=== PATIENT | female | born 1945 | race Caucasian/White ===

== ENCOUNTER → 2022-01-13 | Outpatient (CLI) | payer OTHER ==
[2022-01-13 07:54] LABS: Urine Bacteria FEW /hpf (None Seen); Urine Blood 1+ /uL (Negative); Urine Specific Gravity 1.005 (1.001-1.035); Urine WBC 28 /hpf (0 - 5)
[2022-01-13 12:05] LABS: Potassium 4.1 mmol/L (3.5-5.1)
[2022-01-13 12:21] LABS: BUN/Creatinine Ratio 17.9; Bilirubin, Total 0.6 mg/dL (0.2-1.0); Calcium 10.2 mg/dL (8.5-10.1); Total Protein 7.2 g/dL (6.4-8.2)
== END | disposition home or self-care (01) ==
LOC: LAB 07:28
PROVIDERS: ATTEND Internal Medicine
DX: Z12.11 Encounter for screening for malignant neoplasm of colon (principal); Z00.00 Encounter for general adult medical examination without abnormal findings; I12.9 Hypertensive chronic kidney disease with stage 1 through stage 4 chronic kidney disease, or unspecified chronic kidney disease; N18.30 Chronic kidney disease, stage 3 unspecified
CPT/HCPCS: 36415; 80053; 80061; 81001; 83036

== ENCOUNTER → 2022-01-17 | Outpatient (CLI) | payer OTHER | END | disposition home or self-care (01) | LOC: LAB 12:12 | PROVIDERS: ATTEND Internal Medicine | DX: Z12.11 Encounter for screening for malignant neoplasm of colon (principal); Z00.00 Encounter for general adult medical examination without abnormal findings; I12.9 Hypertensive chronic kidney disease with stage 1 through stage 4 chronic kidney disease, or unspecified chronic kidney disease; N18.30 Chronic kidney disease, stage 3 unspecified | CPT/HCPCS: 82270; 87086 ==

== ENCOUNTER → 2022-03-29 | Outpatient (CLI) | payer OTHER ==
[2022-03-29 08:29] LABS: Cholesterol 194 mg/dL (< 200)
[2022-03-29 08:31] LABS: HDL Cholesterol 51 mg/dL (40-59); LDL Cholesterol 121 mg/dL (< 100); Triglycerides 148 mg/dL (< 150)
== END | disposition home or self-care (01) ==
LOC: LAB 07:39
PROVIDERS: ATTEND Internal Medicine
DX: E78.5 Hyperlipidemia, unspecified (principal)
CPT/HCPCS: 36415; 80061

== ENCOUNTER → 2022-04-21 | Outpatient (CLI) | payer OTHER | END | disposition home or self-care (01) | LOC: XYW 10:44 | PROVIDERS: ATTEND Internal Medicine | DX: I08.2 Rheumatic disorders of both aortic and tricuspid valves (principal) | CPT/HCPCS: 93306 ==

== ENCOUNTER → 2022-05-03 | Outpatient (CLI) | payer OTHER | END | disposition home or self-care (01) | LOC: LAB 13:21 | PROVIDERS: ATTEND Internal Medicine | DX: N39.0 Urinary tract infection, site not specified (principal) | CPT/HCPCS: 87086; 87088; 87186 ==

== ENCOUNTER → 2022-07-07 | Outpatient (CLI) | payer OTHER ==
[2022-07-07 10:24] LABS: Urine Bacteria NONE SEEN /hpf (None Seen); Urine Blood 2+ /uL (Negative); Urine Specific Gravity 1.007 (1.001-1.035); Urine WBC 84 /hpf (0 - 5); Urine WBC Clumps PRESENT /hpf (None Seen)
[2022-07-07 11:06] LABS: Albumin 3.7 g/dL (3.4-5.0); Calcium 9.8 mg/dL (8.5-10.1); Potassium 4.8 mmol/L (3.5-5.1)
[2022-07-07 11:13] LABS: BUN/Creatinine Ratio 13.3; Bilirubin, Total 0.6 mg/dL (0.2-1.0)
== END | disposition home or self-care (01) ==
LOC: LAB 09:55
PROVIDERS: ATTEND Internal Medicine
DX: N18.30 Chronic kidney disease, stage 3 unspecified (principal); N39.0 Urinary tract infection, site not specified; E78.5 Hyperlipidemia, unspecified
CPT/HCPCS: 36415; 80053; 80061; 81001; 84443; 87086

== ENCOUNTER 2022-08-03 11:05 | Emergency (ER) | payer OTHER ==
[~2022-08-03] VITALS: Ht 167.6 cm; Wt 75.0 kg
[2022-08-03 12:10] VITALS: BP 145/70
[2022-08-03 12:51] LABS: Urine Bacteria NONE SEEN /hpf (None Seen); Urine Blood 1+ /uL (Negative); Urine Budding Yeast FEW /hpf (None Seen); Urine Specific Gravity 1.009 (1.001-1.035); Urine WBC 95 /hpf (0 - 5)
[2022-08-03 13:39] LABS: Potassium 4.6 mmol/L (3.5-5.1)
[2022-08-03 13:50] LABS: Albumin 4.3 g/dL (3.4-5.0); BUN/Creatinine Ratio 18.4; Bilirubin, Total 0.5 mg/dL (0.2-1.0); Calcium 9.8 mg/dL (8.5-10.1); Total Protein 7.2 g/dL (6.4-8.2)
[2022-08-03 14:41] LABS: Basophils # (auto) 0.1 10 ^3/uL (0-0.2); Basophils % (auto) 0.9 % (0.0-2.0); Eosinophils # (auto) 0.2 10 ^3/uL (0-0.8); Eosinophils % (auto) 2.3 % (0.0-7.0); Hematocrit 42.4 % (36.0-46.0); Hemoglobin 14.1 g/dL (12.2-16.2); Lymphocytes # (auto) 2.8 10 ^3/uL (0.4-5.4); Lymphocytes % (auto) 32.3 % (10.0-50.0); Mean Corpuscular Hemoglobin 30.2 pg (28.0-32.0); Mean Corpuscular Hgb Conc. 33.2 g/dL (32.0-36.0); Mean Corpuscular Volume 90.9 fL (80.0-100.0); Monocytes # (auto) 0.5 10 ^3/uL (0-1.3); Monocytes % (auto) 5.3 % (0.0-12.0); Neutrophils # (auto) 5.1 10 ^3/uL (1.6-8.6); Neutrophils % (auto) 59.2 % (37.0-80.0); Nucleated Red Blood Cells % 0.1 %; Red Blood Cells 4.67 10^6/uL (4.0-5.20); Red Cell Distribution Width 13.4 % (11.8-14.3); White Blood Cell 8.6 10^3/uL (4.4-10.8)
[2022-08-03] MEDS ORDERED: CEPH-510 PO (15:39)
== END 2022-08-03 19:25 | disposition home or self-care (01) ==
LOC: ER 11:05
DX: N39.0 Urinary tract infection, site not specified (principal); Z88.6 Allergy status to analgesic agent; Z88.8 Allergy status to other drugs, medicaments and biological substances
CPT/HCPCS: 36415; 70450; 71045; 71250; 80053; 81001; 84484; 85025; 85379; 93005

== ENCOUNTER → 2022-08-15 | Outpatient (CLI) | payer OTHER ==
[~2022-08-15] MED LIST: CEPH-510 PO
[2022-08-15 12:53] LABS: Albumin 3.8 g/dL (3.4-5.0)
[2022-08-15 12:57] LABS: Bilirubin, Direct 0.2 mg/dL (0-0.2); Bilirubin, Total 0.4 mg/dL (0.2-1.0); Total Protein 6.8 g/dL (6.4-8.2)
== END | disposition home or self-care (01) ==
LOC: LAB 10:48
PROVIDERS: ATTEND Internal Medicine
DX: N18.30 Chronic kidney disease, stage 3 unspecified (principal); E78.5 Hyperlipidemia, unspecified
CPT/HCPCS: 36415; 80076; 82043

== ENCOUNTER → 2022-09-27 | Outpatient (CLI) | payer OTHER ==
[2022-09-27 10:53] LABS: Urine Bacteria MOD /hpf (None Seen); Urine Blood 1+ /uL (Negative); Urine Specific Gravity 1.011 (1.001-1.035); Urine WBC 23 /hpf (0 - 5)
[2022-09-27 11:19] LABS: Albumin 3.7 g/dL (3.4-5.0); Bilirubin, Direct 0.1 mg/dL (0-0.2)
[2022-09-27 11:21] LABS: Bilirubin, Total 0.3 mg/dL (0.2-1.0)
== END | disposition home or self-care (01) ==
LOC: LAB 10:32
PROVIDERS: ATTEND Internal Medicine
DX: E78.5 Hyperlipidemia, unspecified (principal); N39.0 Urinary tract infection, site not specified
CPT/HCPCS: 36415; 80061; 80076; 81001

== ENCOUNTER → 2022-11-10 | Outpatient (CLI) | payer OTHER ==
[2022-11-10 10:56] LABS: Urine Bacteria FEW /hpf (None Seen); Urine Blood 2+ /uL (Negative); Urine Specific Gravity 1.011 (1.001-1.035); Urine WBC 79 /hpf (0 - 5); Urine WBC Clumps PRESENT /hpf (None Seen)
== END | disposition home or self-care (01) ==
LOC: LAB 10:24
PROVIDERS: ATTEND Internal Medicine
DX: N39.0 Urinary tract infection, site not specified (principal)
CPT/HCPCS: 81001; 87086

== ENCOUNTER → 2022-12-12 | Outpatient (CLI) | payer OTHER | END | disposition home or self-care (01) | LOC: LAB 06:09 | PROVIDERS: ATTEND Licensed Practical Nurse | DX: N39.0 Urinary tract infection, site not specified (principal) | CPT/HCPCS: 87086; 87088; 87186 ==

== ENCOUNTER → 2023-01-04 | Outpatient (CLI) | payer BC ==
[2023-01-04 11:55] LABS: Potassium 4.3 mmol/L (3.5-5.1)
[2023-01-04 12:06] LABS: Albumin 3.8 g/dL (3.4-5.0); BUN/Creatinine Ratio 25.3; Bilirubin, Total 0.4 mg/dL (0.2-1.0); Calcium 9.4 mg/dL (8.5-10.1)
== END | disposition home or self-care (01) ==
LOC: LAB 10:20
PROVIDERS: ATTEND Internal Medicine
DX: E78.5 Hyperlipidemia, unspecified (principal)
CPT/HCPCS: 36415; 80053; 80061

== ENCOUNTER → 2023-04-05 | Outpatient (CLI) | payer BC ==
[2023-04-05 14:02] LABS: Urine Bacteria NONE SEEN /hpf (None Seen); Urine Blood 2+ /uL (Negative); Urine Specific Gravity 1.009 (1.001-1.035); Urine WBC 49 /hpf (0 - 5)
== END | disposition home or self-care (01) ==
LOC: LAB 13:20
PROVIDERS: ATTEND Internal Medicine
DX: N39.0 Urinary tract infection, site not specified (principal)
CPT/HCPCS: 81001; 87086

== ENCOUNTER → 2023-05-22 | Outpatient (CLI) | payer BC ==
[2023-05-22 07:28] LABS: Urine Bacteria NONE SEEN /hpf (None Seen); Urine Blood Negative /uL (Negative); Urine Specific Gravity 1.008 (1.001-1.035); Urine WBC 2 /hpf (0 - 5)
== END | disposition home or self-care (01) ==
LOC: LAB 07:07
PROVIDERS: ATTEND Urology
DX: N39.0 Urinary tract infection, site not specified (principal)
CPT/HCPCS: 81001; 87086

== ENCOUNTER → 2023-07-07 | Outpatient (CLI) | payer BC ==
[2023-07-07 12:15] LABS: Calcium 9.7 mg/dL (8.5-10.1); Potassium 4.1 mmol/L (3.5-5.1)
[2023-07-07 12:18] LABS: BUN/Creatinine Ratio 16.3 (10.0-20.0)
[2023-07-07 12:32] LABS: Urine Bacteria NONE SEEN /hpf (None Seen); Urine Blood 3+ /uL (Negative); Urine Clarity HAZY (Clear); Urine Color Yellow (Yellow); Urine Protein, UAD Negative (Negative); Urine Specific Gravity 1.009 (1.001-1.035); Urine Urobilinogen Normal (Negative); Urine WBC 106 /hpf (0 - 5)
== END | disposition home or self-care (01) ==
LOC: LAB 11:20
PROVIDERS: ATTEND Internal Medicine
DX: N18.2 Chronic kidney disease, stage 2 (mild) (principal); E78.5 Hyperlipidemia, unspecified; N39.0 Urinary tract infection, site not specified
CPT/HCPCS: 36415; 80048; 81001; 84443; 87086; 87088; 87186

== ENCOUNTER 2023-07-09 12:21 | Emergency (ER) | payer BC ==
[~2023-07-09] VITALS: Ht 167.6 cm; Wt 82.0 kg
[2023-07-09 12:30] VITALS: BP 136/68; PULSE 50; RESP 18; O2SAT 96
== END 2023-07-09 14:12 | disposition home or self-care (01) ==
LOC: ER 12:21
DX: S93.492A Sprain of other ligament of left ankle, initial encounter (principal); I10 Essential (primary) hypertension; Z90.710 Acquired absence of both cervix and uterus; Z98.890 Other specified postprocedural states; X58.XXXA Exposure to other specified factors, initial encounter; Y93.89 Activity, other specified; Y92.89 Other specified places as the place of occurrence of the external cause; Y99.8 Other external cause status
CPT/HCPCS: 73610

== ENCOUNTER → 2024-07-25 | Outpatient (CLI) | payer BC ==
[2024-07-25 10:37] LABS: Magnesium 1.8 mg/dL (1.6-2.6)
== END | disposition home or self-care (01) ==
LOC: LAB 08:51
PROVIDERS: ATTEND Internal Medicine
DX: M19.041 Primary osteoarthritis, right hand (principal); M00-M99 Diseases of the musculoskeletal system and connective tissue
CPT/HCPCS: 36415; 80061; 83036; 83735

== ENCOUNTER → 2024-12-02 | Outpatient (CLI) | payer BC ==
[2024-12-02 10:25] LABS: Basophils # (auto) 0.1 10 ^3/uL (0-0.2); Basophils % (auto) 1.4 % (0.0-2.0); Eosinophils # (auto) 0.3 10 ^3/uL (0-0.8); Eosinophils % (auto) 3.2 % (0.0-7.0); Hematocrit 45.4 % (36.0-46.0); Hemoglobin 15.7 g/dL (12.2-16.2); Lymphocytes # (auto) 2.2 10 ^3/uL (0.4-5.4); Lymphocytes % (auto) 27.3 % (10.0-50.0); Mean Corpuscular Hemoglobin 31.8 pg (28.0-32.0); Mean Corpuscular Hgb Conc. 34.5 g/dL (32.0-36.0); Mean Corpuscular Volume 92.2 fL (80.0-100.0); Monocytes # (auto) 0.6 10 ^3/uL (0-1.3); Monocytes % (auto) 7.2 % (0.0-12.0); Neutrophils # (auto) 4.9 10 ^3/uL (1.6-8.6); Neutrophils % (auto) 60.9 % (37.0-80.0); Nucleated Red Blood Cells % 0.1 %; Platelet Count (auto) 333 10^3/uL (140-450); Red Blood Cells 4.92 10^6/uL (4.0-5.20); Red Cell Distribution Width 13.5 % (11.8-14.3); White Blood Cell 8.1 10^3/uL (4.4-10.8)
[2024-12-02 10:59] LABS: Alanine Aminotransferase 31 U/L (7-40); Alkaline Phosphatase 92 U/L (46-116); Anion Gap 9 (5-15); BUN/Creatinine Ratio 17.8 (10.0-20.0); Blood Urea Nitrogen 16 mg/dL (9-23); Carbon Dioxide 25 mmol/L (20-31); Chloride 107 mmol/L (98-107); Glucose 101 mg/dL (74-106); Potassium 4.2 mmol/L (3.5-5.1); Sodium 141 mmol/L (136-145)
[2024-12-02 11:01] LABS: Albumin 4.6 g/dL (3.2-4.8); Aspartate Aminotransferase 31 U/L (13-40); Bilirubin, Total 0.7 mg/dL (0.2-1.0); Cholesterol 180 mg/dL (< 200); HDL Cholesterol 51 mg/dL (40-59); Total Protein 7.2 g/dL (5.7-8.2)
[2024-12-02 11:03] LABS: Calcium 10.6 mg/dL (8.7-10.4); LDL Cholesterol 107 mg/dL (< 100); Triglycerides 190 mg/dL (< 150)
== END | disposition home or self-care (01) ==
LOC: LAB 09:49
PROVIDERS: ATTEND Internal Medicine
DX: Z00.00 Encounter for general adult medical examination without abnormal findings (principal); E03.9 Hypothyroidism, unspecified; E78.5 Hyperlipidemia, unspecified
CPT/HCPCS: 36415; 80053; 80061; 84443; 85025

== ENCOUNTER → 2024-12-13 | Outpatient (CLI) | payer BC | END | disposition home or self-care (01) | LOC: LAB 12:35 | PROVIDERS: ATTEND Internal Medicine | DX: E83.52 Hypercalcemia (principal) | CPT/HCPCS: 36415; 82306; 82310; 83970 ==

== ENCOUNTER → 2025-01-02 | Outpatient (CLI) | payer BC ==
[2025-01-02 11:57] LABS: Alanine Aminotransferase 17 U/L (7-40); Albumin 4.7 g/dL (3.2-4.8); Alkaline Phosphatase 84 U/L (46-116); Anion Gap 7 (5-15); Aspartate Aminotransferase 18 U/L (13-40); BUN/Creatinine Ratio 15.5 (10.0-20.0); Blood Urea Nitrogen 16 mg/dL (9-23); Carbon Dioxide 26 mmol/L (20-31); Chloride 107 mmol/L (98-107); Potassium 4.5 mmol/L (3.5-5.1); Sodium 140 mmol/L (136-145)
[2025-01-02 11:58] LABS: Bilirubin, Total 0.7 mg/dL (0.2-1.0); Calcium 10.7 mg/dL (8.7-10.4); Glucose 152 mg/dL (74-106)
== END | disposition home or self-care (01) ==
LOC: LAB 11:10
PROVIDERS: ATTEND Internal Medicine
DX: E83.52 Hypercalcemia (principal)
CPT/HCPCS: 36415; 80053

== ENCOUNTER → 2025-03-31 | Outpatient (CLI) | payer BC ==
[2025-03-31 11:09] LABS: Calcium 10.7 mg/dL (8.7-10.4)
== END | disposition home or self-care (01) ==
LOC: LAB 10:29
PROVIDERS: ATTEND Internal Medicine
DX: E83.52 Hypercalcemia (principal); E78.5 Hyperlipidemia, unspecified
CPT/HCPCS: 36415; 80061; 82310

== ENCOUNTER 2025-05-08 13:01 | Inpatient (IN) | payer BC ==
[~2025-05-08] VITALS: Ht 167.6 cm; Wt 81.0 kg
[2025-05-08 14:00] VITALS: PULSE 74; RESP 12; O2SAT 94
[2025-05-08 14:33] LABS: Basophils # (auto) 0 10 ^3/uL (0-0.2); Basophils % (auto) 0.3 % (0.0-2.0); Eosinophils # (auto) 0 10 ^3/uL (0-0.8); Hematocrit 39.5 % (36.0-46.0); Hemoglobin 13.7 g/dL (12.2-16.2); Lymphocytes # (auto) 0.8 10 ^3/uL (0.4-5.4); Lymphocytes % (auto) 5.8 % (10.0-50.0); Mean Corpuscular Hgb Conc. 34.7 g/dL (32.0-36.0); Mean Corpuscular Volume 89.3 fL (80.0-100.0); Monocytes # (auto) 0.8 10 ^3/uL (0-1.3); Monocytes % (auto) 6.3 % (0.0-12.0); Neutrophils # (auto) 11.7 10 ^3/uL (1.6-8.6); Neutrophils % (auto) 87.6 % (37.0-80.0); Platelet Count (auto) 206 10^3/uL (140-450); Red Blood Cells 4.42 10^6/uL (4.0-5.20); Red Cell Distribution Width 13.9 % (11.8-14.3); White Blood Cell 13.3 10^3/uL (4.4-10.8)
--- NOTE | 2025-05-08 14:33 | DVH ---
CLINICAL INFORMATION: Abdominal pain. TECHNIQUE: Axial CT images of the abdomen and pelvis were obtained without IV contrast. Coronal and s agittal reformatted images were obtained, reviewed, and stored. Evaluation of the parenchymal organs is limited without IV contrast. Evaluation of the bowel and mesentery is limited without oral contras t. All CT scans at this medical facility are performed using dose modulation techniques as appropriat e to a performed exam including the following: Automated exposure control was utilized; adjustment of the MA and/or KV according to patient size; and use of iterative reconstruction technique. CTDIvol = 12.68 mGy DLP = 593.09 mGy-cm COMPARISON: None available at the time of dictation. FINDINGS: Lung bases: Mild atelectasis in the lung bases. Liver: Grossly unremarkable in its noncontrast enhanced appearance. No abnormal density or focal lesi on identified. Biliary: Gallbladder is distended, measuring up to 9.9 cm in length 4.8 cm in width. No calcified gal lstones visualized in the gallbladder. No biliary ductal dilatation Spleen: Unremarkable. Pancreas: Grossly unremarkable in its noncontrast enhanced appearance. Adrenal glands: Unremarkable. No mass. Kidneys: No hydronephrosis. No renal or ureteral calculi. Aorta/Vascular: Moderate atherosclerotic calcification. No abdominal aortic aneurysm. Retroperitoneum: No mass or lymphadenopathy. Bowel/mesentery: No small bowel obstruction. Appendix is visualized and appears unremarkable. There is diverticulosis of the rectosigmoid colon and scattered diverticula throughout the colon without ad jacent inflammatory changes identified to suggest diverticulitis. Moderate stool in the colon. Duoden al diverticulum incidentally noted. Pelvic organs: Uterus is surgically absent. Bladder: Unremarkable. No mass. Abdominal wall: Postsurgical changes are seen with nanci of the ventral pelvic body wall Bones: No acute fracture or suspicious intraosseous lesion. IMPRESSION: 1. Distended gallbladder. No calcified gallstones visualized. Correlate with clinical findings. If cl inically indicated, ultrasound could be obtained to further evaluate. 2. Scattered colonic diverticula without adjacent inflammatory changes to suggest diverticulitis. 3. Moderate stool in the colon. 4. Additional findings as detailed above.
[2025-05-08 14:52] LABS: Albumin 4.2 g/dL (3.2-4.8); Anion Gap 11 (5-15); BUN/Creatinine Ratio 18.9 (10.0-20.0); Blood Urea Nitrogen 21 mg/dL (9-23); Calcium 9.2 mg/dL (8.7-10.4); Carbon Dioxide 20 mmol/L (20-31); Chloride 100 mmol/L (98-107); Lipase 31 U/L (12-53); Potassium 3.7 mmol/L (3.5-5.1); Total Protein 6.6 g/dL (5.7-8.2)
[2025-05-08 14:56] LABS: Alanine Aminotransferase 113 U/L (7-40); Alkaline Phosphatase 203 U/L (46-116); Aspartate Aminotransferase 167 U/L (0-34); Bilirubin, Total 3.1 mg/dL (0.2-1.0); Glucose 125 mg/dL (74-106); Sodium 131 mmol/L (136-145)
--- NOTE | 2025-05-08 15:33 | ED.PDOC ---
History of Present Illness HPI Comments 79-year-old female with PMHx Renal Failure, Thyroid Disease, HTN, HLD, CVA presents with a chief complaint of abdominal pain with associated nausea and vomiting. Patient states that her pain is localized to her LUQ, nonradiating, and rates her pain a 5/10. Patient endorses nausea and vomiting, but denies any diarrhea or rectal bleeding. Patient is not actively vomiting at this time. Chief Complaint: Abdominal Pain Time Seen by MD: 15:27 Primary Care Provider: SATHISH Reviewed Notes: Medications, Allergies Allergies: Coded Allergies: Aspirin (Verified Allergy, Unknown, 08/03/22) Diclofenac (Verified Allergy, Unknown, 08/03/22) Pentazocine (Verified Allergy, Unknown, 08/03/22) Home Meds Active Scripts Cephalexin ( Keflex 500) 500 Mg Cap, 1 CAP PO BID for 5 Days, #10 CAP Prov:LUDY FRANZ MD 08/03/22 Information Source: Patient Mode of Arrival: Wheelchair Severity: Moderate Timing: Days Duration: Since onset Prehospital treatment: None Past Medical History PAST MEDICAL HISTORY: CKF, CVA, High Lipids, HTN, Thyroid Surgical History: Hernia Repair, Hysterectomy RESEARCH PROJECT COORDINATOR History: Denies all RESEARCH PROJECT COORDINATOR Hx Family History Family History: Reviewed,noncontributory to illness Social History Smoker: Non-Smoker Alcohol: Denies ETOH Use Drugs: Denies Drug Use Lives In: Home Constitutional: denies: chills, diaphoresis, fatigue, fever, malaise, sweats, weakness, others EENTM: denies: blurred vision, double vision, ear bleeding, ear discharge, ear drainage, ear pain, ear ringing, eye pain, eye redness, hearing loss, mouth pain, mouth swelling, nasal discharge, nose bleeding, nose congestion, nose pain, photophobia, tearing, throat pain, throat swelling, voice changes, others Respiratory: denies: cough, hemoptysis, orthopnea, SOB at rest, shortness of breath, SOB with excertion, stridor, wheezing, others Cardiovascular: denies: chest pain, dizzy spells, diaphoresis, Dyspnea on exertion, edema, irregular heart beat, left arm pain, lightheadedness, palpitations, PND, syncope, others Gastrointestinal: reports: abdominal pain, nausea, vomiting; denies: abdomen distended, blood streaked bowels, constipated, diarrhea, dysphagia, difficulty swallowing, hematemesis, melena, poor appetite, poor fluid intake, rectal bleeding, rectal pain, others Genitourinary: denies: abnormal vagina bleeding, burning, dyspareunia, dysuria, flank pain, frequency, hematuria, incontinence, pain, , vagina discharge, urgency, others Neurological: denies: dizziness, fainting, headache, left sided numbness, left sided weakness, numbness, paresthesia, pre-existing deficit, right sided numbness, right sided weakness, seizure, speech problems, tingling, tremors, weakness, others Musculoskeletal: denies: back pain, gout, joint pain, joint swelling, muscle pain, muscle stiffness, neck pain, others Integumetry: denies: bruises, change in color, change in hair/nails, dryness, laceration, lesions, lumps, rash, wounds, others Allergic/Immunocompromised: denies: Difficulty Healing, Frequent Infections, Hives, Itching, others Hematologic/Lymphatic: denies: anemia, blood clots, easy bleeding, easy bruising, swollen glands, others Endocrine: denies: excessive hunger, excessive sweating, excessive thirst, excessive urination, flushing, intolerance to cold, intolerance to heat, unexplained weight gain, unexplained weight loss, others Psychiatric: denies: anxiety, bipolar disorder, depression, hopeless, panic disorder, schizophrenia, sleepless, suicidal, others All Other Systems: Reviewed and Negative Physical Exam General Appearance: Moderate Distress HEENT: Normal ENT Inspection, Pharynx Normal, TMs Normal Neck: Full Range of Motion, Non-Tender, Normal, Normal Inspection Respiratory: Chest Non-Tender, Lungs Clear, No Accessory Muscle Use, No Respiratory Distress, Normal Breath Sounds Cardiovascular: No Edema, No JVD, No Murmur, No Gallop, Normal Peripheral Pulses, Regular Rate/Rhythm Breast Exam: Deferred Gastrointestinal: LLQ, No Organomegaly, No Pulsatile Mass, Normal Bowel Sounds, Soft, Tenderness Genitalia: Deferred Pelvic: Deferred Rectal: Deferred Extremities: No calf tenderness, Normal capillary refill, Normal inspection, Normal range of motion, Non-tender, No pedal edema Musculoskeletal : Apperance: Normal Neurologic: Alert, machine rug cleaner II-XII nml as Tested, Motor Weakness, Normal Affect, Normal Mood, No Sensory Deficits Cerebellar Function: Normal Reflexes: Normal Skin: Dry, Normal Color, Warm Lymphatic: No Adenopathy Was a procedure done? Was a procedure done?: No Differential Dx Considerations may include: Intractable abdominal pain, diverticulitis, gallstones, appendicitis X-Ray, Labs, Meds, VS Vital Signs Date Time Temp Pulse Resp B/P (MAP) Pulse Ox O2 Delivery O2 Flow Rate FiO2 05/08/25 20:16 68 11 119/59 05/08/25 18:00 98.1 70 14 113/47 (69) 92 98.1 05/08/25 16:00 72 05/08/25 15:56 73 12 105/59 (74) 94 05/08/25 14:00 74 12 94 Room Air* 0 21 05/08/25 13:54 98.2 68 12 98/52 (67) 92 98.2 05/08/25 13:18 98.4 83 16 81/43 (56) 97 98.4 Lab Test 05/08/25 17:06 05/08/25 14:20 05/08/25 13:14 Range/Units Urine Color Yellow Yellow Urine Clarity Clear Clear Urine pH 6.0 5.0-9.0 Urine Specific [place] 1.008 1.001-1.035 Urine Protein Negative Negative Urine Ketones Negative Negative Urine Blood 2+ H Negative /uL Urine Nitrite Negative Negative Urine Bilirubin Negative Negative Urine Urobilinogen Normal Negative mg/dL Urine Leukocyte Esterase 3+ Negative /uL Urine RBC 4 0 - 4 /hpf Urine Microscopic WBC 20 H 0-5 /HPF Urine Squamous Epithelial Cells Few <5 /hpf Urine Bacteria Many H None Seen /hpf Urine Glucose Normal Normal mg/dL White Blood Count 13.3 H 4.4-10.8 10^3/uL Red Blood Count 4.42 4.0-5.20 10^6/uL Hemoglobin 13.7 12.2-16.2 g/dL Hematocrit 39.5 36.0-46.0 % Mean Corpuscular Volume 89.3 80.0-100.0 fL Mean Corpuscular Hemoglobin 31.0 28.0-32.0 pg Mean Corpuscular Hemoglobin Concent 34.7 32.0-36.0 g/dL Red Cell Distribution Width 13.9 11.8-14.3 % Platelet Count 206 140-450 10^3/uL Mean Platelet Volume 6.5 L 6.9-10.8 fL Neutrophils (%) (Auto) 87.6 H 37.0-80.0 % Lymphocytes (%) (Auto) 5.8 L 10.0-50.0 % Monocytes (%) (Auto) 6.3 0.0-12.0 % Eosinophils (%) (Auto) 0.0 0.0-7.0 % Basophils (%) (Auto) 0.3 0.0-2.0 % Neutrophils # (Auto) 11.7 H 1.6-8.6 10 ^3/uL Lymphocytes # (Auto) 0.8 0.4-5.4 10 ^3/uL Monocytes # (Auto) 0.8 0-1.3 10 ^3/uL Eosinophils # (Auto) 0 0-0.8 10 ^3/uL Basophils # (Auto) 0 0-0.2 10 ^3/uL Nucleated Red Blood Cells 0.0 % Sodium Level 131 L 136-145 mmol/L Potassium Level 3.7 3.5-5.1 mmol/L Chloride Level 100 98-107 mmol/L Carbon Dioxide Level 20 20-31 mmol/L Anion Gap 11 5-15 Blood Urea Nitrogen 21 9-23 mg/dL Creatinine 1.11 H 0.550-1.02 mg/dL Glomerular Filtration Rate Calc 51 >90 mL/min BUN/Creatinine Ratio 18.9 10.0-20.0 Serum Glucose 125 H 74-106 mg/dL Calcium Level 9.2 8.7-10.4 mg/dL Total Bilirubin 3.1 H 0.2-1.0 mg/dL Aspartate Amino Transferase (AST) 167 H 0-34 U/L Alanine Aminotransferase (ALT) 113 H 7-40 U/L Alkaline Phosphatase 203 H 46-116 U/L Total Protein 6.6 5.7-8.2 g/dL Albumin 4.2 3.2-4.8 g/dL Lipase 31 12-53 U/L POC Glucose 145 H 70-106 mg/dl Current Medications Medications (Trade) Dose Ordered Sig/Katie Route Start Time Stop Time Status Last Admin Morphine Sulfate 4 mg ONCE ONCE IV 05/08/25 20:15 05/08/25 20:16 DC 05/08/25 20:16 Ondansetron HCl (Zofran) 4 mg ONCE ONCE IV 05/08/25 20:15 05/08/25 20:16 DC 05/08/25 20:15 IV Hep-Lock was established The patient was given morphine 4 mg IV push for the pain The patient was given Zofran 4 mg IV push for the nausea The patient has elevated liver enzymes as well as a total bilirubin of 3.1 The patient's CBC shows an elevated white blood cell count of 13.3 There is a concern that the patient may have acute cholecystitis The urine test is positive for UTI The patient will be given Rocephin IV piggyback for the UTI The patient is being admitted at this time The patient most likely has a acute cholecystitis A CAT scan of the abdomen and pelvis shows: IMPRESSION: 1. Distended gallbladder. No calcified gallstones visualized. Correlate with clinical findings. If clinically indicated, ultrasound could be obtained to further evaluate. 2. Scattered colonic diverticula without adjacent inflammatory changes to suggest diverticulitis. 3. Moderate stool in the colon. 4. Additional findings as detailed above. Images Reviewed?: Images reviewed and evaluated by me Time of 1ST Reevaluation: 15:57 Reevaluation 1ST: Unchanged Patient Education/Counseling: Diagnosis, Treatment, Prognosis Family Education/Counseling: Diagnosis, Treatment, Prognosis Departure 1 Departure Time of Disposition: 20:24 Impression: Primary Impression: Intractable abdominal pain Additional Impressions: Acute cholecystitis Hyperbilirubinemia Disposition: ADMITTED INPATIENT Admit to: [facility] Condition: Fair Critical Care Note Critical Care Time?: No Stability Stability form required: Yes Unstable for transfer: ED Physician Assesment (Clinical assesment) Heart Score Heart Score: Heart Score Response (Comments) Value History N/A 0 EKG N/A 0 Age N/A 0 Risk Factors N/A 0 Troponin N/A 0 Total 0 I personally scribed for FELICITA THOMPSON MD ([email or web address]) on 05/08/25 at 15:33. Electronically submitted by Beto Lopez ([email or web address]). FELICITA THOMPSON MD May 08, 2025 15:33
[2025-05-08 17:24] LABS: Urine Bacteria MANY /hpf (None Seen); Urine Blood 2+ /uL (Negative); Urine Clarity Clear (Clear); Urine Color Yellow (Yellow); Urine Protein, UAD Negative (Negative); Urine Specific Gravity 1.008 (1.001-1.035); Urine Squamous Epithelial Cell FEW /hpf (<5); Urine Urobilinogen Normal (Negative); Urine WBC 20 /HPF (0-5)
[2025-05-08 19:25] VITALS: PULSE 76; RESP 18; O2SAT 95
[2025-05-08] MEDS: ONDANSETRON HCL 4 MG/2 ML VIAL IV ONE (20:15)
[2025-05-08] MEDS: MORPHINE SULFATE 4 MG/ML SYR/VIAL IV ONE (20:16)
[2025-05-08] MEDS ORDERED: metroNIDAZOLE 500MG/100ML 100 ML IV ONE (21:30)
[2025-05-08] MEDS ORDERED: ONDANSETRON HCL 4 MG/2 ML VIAL IV PRN (21:30)
--- NOTE | 2025-05-08 21:41 | DVH ---
EXAM: US GALLBLADDER CLINICAL HISTORY: pain TECHNIQUE: Grayscale and limited color flow doppler ultrasound of the right upper quadrant is perfor med. COMPARISON: None Findings: Liver measures 15.6 cm in length with heterogeneous echotexture and contour. No evidence of focal hep atic lesions or intra- or extrahepatic ductal dilatation. Common bile duct measures 0.7 cm in diamete r. Normal hepatopedal flow noted within the portal vein. No perihepatic free fluid is noted. Gallbladder appears within normal limits with gallbladder wall thickness measuring 0.3 cm. There is s hadowing calculi and biliary sludge. No evidence of pericholecystic fluid. Negative sonographic Jabari y's sign. Pancreas only partially visualized due to overlying bowel gas but is otherwise unremarkable. Right kidney measures 10.0 cm with normal contours, echotexture and cortical thickness. No evidence o f hydronephrosis, calculi, cystic or solid renal lesions. Partially visualized inferior vena cava unremarkable. Impression: 1. No evidence of acute right upper quadrant abnormalities. 2. Coarsened hepatic echotexture, nonspecific. 3. Borderline gallbladder wall thickening with cholelithiasis and negative sonographic menjivar's sign. If there is clinical concern for acute cholecystitis, recommend a nuclear medicine hepatobiliary sc an.
[2025-05-08] MEDS: cefTRIAXone 1GM/50ML D5W 50 ML IV ONE (22:10)
[2025-05-08 22:49] VITALS: PULSE 85; RESP 20; O2SAT 95
[2025-05-08] MEDS ORDERED: FAMO-12 PO (22:55)
[2025-05-08] MEDS ORDERED: OXYB5TAB14 PO (22:55)
[2025-05-08] MEDS ORDERED: METH-928 PO (22:55)
[2025-05-08] MEDS ORDERED: GABA-339 PO (22:55)
[2025-05-08] MEDS ORDERED: VALS1TAB57 PO (22:55)
[2025-05-08] MEDS ORDERED: LEVO-177 PO (22:55)
[2025-05-08] MEDS ORDERED: ATOR10TA52 PO (22:55)
[2025-05-08] MEDS ORDERED: NIFE1TAB31 PO (22:55)
[2025-05-08] MEDS: SODIUM CHLORIDE 0.9% 1,000 ML IV ONE (23:18)
[2025-05-08] MEDS: metroNIDAZOLE 500MG/100ML 100 ML IV SCH (23:27)
[2025-05-09] VITALS (7 sets, daily range): BP systolic 104–131; BP diastolic 65–82; PULSE 62–85; RESP 17–20; TEMP 97.3–98.9; O2SAT 94–98
--- NOTE | 2025-05-09 01:53 | DVHHPRES ---
History of Present Illness Resident Creating Document: ALFNasrinBRENTON AlexandraANTONY RESIDENT History of Present Illness Patient is a 79-year-old with a past medical history of hypertension, CKD, cerebrovascular bleed (subarachnoid bleed x2), hypothyroidism, hyperlipidemia presented to the ER with a chief complaint of abdominal pain for about 6 days. Patient reported sudden onset upper abdominal pain across the right upper quadrant to the left upper quadrant on Monday last week following which she had 1 episode of vomiting which was large in amount and no blood was seen. Since that episode patient has had intermittent right upper quadrant abdominal pain, nonradiating, did not worsen on eating food, no postural variation, denied any further episodes of vomiting, reported decreased appetite. To do the right upper abdominal pain got worse following which she came to the hospital for further evaluation. She denied any fever, chills, diarrhea or constipation. Patient has a history of prolapsed bladder/rectum status post repair in 2009 and follows up with the Dr. Orozco and self caths twice in the day in the morning and in the evening before going to bed. Patient denies any a similar episode of abdominal pain previously. Past medical history: As per HPI Past surgical history: Hysterectomy, hernia repair, prolapsed bladder/rectum surgery Social history: Patient denies smoking, drinking alcohol but reports smoking 1 joint of marijuana every day but denies any other drug usage Home medications: Levothyroxine 88 mcg, valsartan 80 mg, nifedipine 30 mg, gabapentin 600 b.i.d., oxybutynin 5 mg Review of Systems Review of Systems Patient seen and examined at the bedside Reports some [id number] right upper quadrant pain, intermittent nausea but no vomiting Denies diarrhea or constipation No fever or chills No dysuria Stools reportedly of regular color Allergies: Coded Allergies: Aspirin (Verified Allergy, Unknown, 08/03/22) Diclofenac (Verified Allergy, Unknown, 08/03/22) Pentazocine (Verified Allergy, Unknown, 08/03/22) Medications Current Medications Medications Dose Ordered Sig/Katie Route Start Time Stop Time Status Last Admin Dose Admin Ondansetron HCl 4 mg Q6HPRN PRN IV 05/08/25 21:30 Ceftriaxone Sodium 50 ml @ 100 mls/hr DAILY@09 IV 05/09/25 09:00 Metronidazole 100 ml @ 100 mls/hr Q8HR IV 05/08/25 22:00 05/08/25 23:27 100 MLS/HR Exam Vital Signs Vital Signs Date Time Temp Pulse Resp B/P (MAP) Pulse Ox O2 Delivery O2 Flow Rate FiO2 05/08/25 22:49 85 20 95 Room Air* 0 21 05/08/25 22:00 98.1 119/62 (81) 98.1 Exam Gen - no pallor, minimal scleral icterus, no cyanosis, no clubbing, no LAD, no edema . Skin - Patients skin is warm and dry. HEENT - normocephalic, atraumatic, moist mucous membranes. Neck - full ROM, no LAD, no JVD Pulmonary - B/L equal breath sounds, no crackles, no wheezing, no stridor. cardiovascular - regular S1,S2 heard, no added sounds, no murmurs heard. peripheral pulses normal radial 2+, pedal 2+. capillary refill normal <2 secs. GI - soft abdomen with tenderness to palpation in the right upper quadrant with positive Bailey's sign. no hepatospleenomegaly. Bowel sounds normoactive Neurological - Patient is A/O X 3 . Bilateral upper extremity strength 5/5, bilateral lower extremity strength 5/5, no facial droop, normal speech, no tremor, no sensory deficiets. Labs/Xrays Labs Test 05/08/25 21:30 05/08/25 17:06 05/08/25 14:20 05/08/25 13:14 Range/Units Direct Bilirubin 2.6 H <0.3 mg/dL Urine Color Yellow Yellow Urine Clarity Clear Clear Urine pH 6.0 5.0-9.0 Urine Specific [place] 1.008 1.001-1.035 Urine Protein Negative Negative Urine Ketones Negative Negative Urine Blood 2+ H Negative /uL Urine Nitrite Negative Negative Urine Bilirubin Negative Negative Urine Urobilinogen Normal Negative mg/dL Urine Leukocyte Esterase 3+ Negative /uL Urine RBC 4 0 - 4 /hpf Urine Microscopic WBC 20 H 0-5 /HPF Urine Squamous Epithelial Cells Few <5 /hpf Urine Bacteria Many H None Seen /hpf Urine Glucose Normal Normal mg/dL White Blood Count 13.3 H 4.4-10.8 10^3/uL Red Blood Count 4.42 4.0-5.20 10^6/uL Hemoglobin 13.7 12.2-16.2 g/dL Hematocrit 39.5 36.0-46.0 % Mean Corpuscular Volume 89.3 80.0-100.0 fL Mean Corpuscular Hemoglobin 31.0 28.0-32.0 pg Mean Corpuscular Hemoglobin Concent 34.7 32.0-36.0 g/dL Red Cell Distribution Width 13.9 11.8-14.3 % Platelet Count 206 140-450 10^3/uL Mean Platelet Volume 6.5 L 6.9-10.8 fL Neutrophils (%) (Auto) 87.6 H 37.0-80.0 % Lymphocytes (%) (Auto) 5.8 L 10.0-50.0 % Monocytes (%) (Auto) 6.3 0.0-12.0 % Eosinophils (%) (Auto) 0.0 0.0-7.0 % Basophils (%) (Auto) 0.3 0.0-2.0 % Neutrophils # (Auto) 11.7 H 1.6-8.6 10 ^3/uL Lymphocytes # (Auto) 0.8 0.4-5.4 10 ^3/uL Monocytes # (Auto) 0.8 0-1.3 10 ^3/uL Eosinophils # (Auto) 0 0-0.8 10 ^3/uL Basophils # (Auto) 0 0-0.2 10 ^3/uL Nucleated Red Blood Cells 0.0 % Sodium Level 131 L 136-145 mmol/L Potassium Level 3.7 3.5-5.1 mmol/L Chloride Level 100 98-107 mmol/L Carbon Dioxide Level 20 20-31 mmol/L Anion Gap 11 5-15 Blood Urea Nitrogen 21 9-23 mg/dL Creatinine 1.11 H 0.550-1.02 mg/dL Glomerular Filtration Rate Calc 51 >90 mL/min BUN/Creatinine Ratio 18.9 10.0-20.0 Serum Glucose 125 H 74-106 mg/dL Calcium Level 9.2 8.7-10.4 mg/dL Total Bilirubin 3.1 H 0.2-1.0 mg/dL Aspartate Amino Transferase (AST) 167 H 0-34 U/L Alanine Aminotransferase (ALT) 113 H 7-40 U/L Alkaline Phosphatase 203 H 46-116 U/L Total Protein 6.6 5.7-8.2 g/dL Albumin 4.2 3.2-4.8 g/dL Lipase 31 12-53 U/L POC Glucose 145 H 70-106 mg/dl Assessment/Plan Assessment/Plan Acute abdominal pain Cholelithiasis with possible acute cholecystitis Transaminitis with cholestatic pattern Rule out choledocholithiasis Possible early acute cholangitis - elevated total bilirubin with increased direct bilirubin - CT abdomen pelvis without contrast shows distended gallbladder - gallbladder ultrasound borderline gallbladder wall thickening with a cholelithiasis, common bile duct measures 0.7 cm - patient NPO except ice chips - IV antibiotics - IV ceftriaxone 2 g plus metronidazole - MRCP to rule out choledocholithiasis given cholestatic pattern of LFTs, - blood culture pending - GI consult UTI likely acute cystitis H/o bladder prolapse s/p repair - h/o self catheterization - urine culture pending - IV antibiotics H/O subarachnoid bleeding (in 2009 and 2017) - no acute symptoms 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 Full code Time spent: 43 minutes Plan discussed with Dr. Arriaza Plan discussed with: Patient My Orders Orders - ÁNGEL ELLIS RESIDENT Procedure Category Date Status Time Admit ADMIT 05/08/25 Transmitted 21:23 Oxygen By Nasal RT 05/08/25 Transmitted Cannula 21:23 Stat Ekg For Chest JESIKA 05/08/25 In Process Pain 21:23 Notify Of Changes JESIKA 05/08/25 In Process From Base 21:23 Ondansetron Hcl PHA 05/08/25 In Process (Zofran) 21:30 Npo Except Ice Chips JESIKA 05/08/25 In Process 21:23 Npo (Nothing By DIET 05/08/25 Transmitted Mouth) Diet Breakfast Ceftriaxone 1gm/50ml PHA 05/09/25 In Process D5w (Rocephin) 09:00 Metronidazole PHA 05/08/25 In Process 500mg/100ml (Flagyl 22:00 Urine Bacterial RITU 05/08/25 In Process Culture 21:23 Sodium Chloride 0.9% PHA 05/08/25 In Process 21:30 Blood Culture RITU 05/08/25 In Process 21:23 Complete Blood Count LAB 05/09/25 Logged 02:00 Comprehensive LAB 05/09/25 Logged Metabolic Panel 02:00 Bilirubin, Direct LAB 05/09/25 Logged 02:00 Date of Service: May 08, 2025 Billing Provider: ÁNGEL ELLIS Common Visit Codes: 64512-[id number] INP/OBS CARE (HIGH) Secondary Visit Codes: 96382-[id number] CARE PLAN 30 MINUTES ÁNGEL ELLIS May 09, 2025 01:53
[2025-05-09 02:13] LABS: Basophils # (auto) 0 10 ^3/uL (0-0.2); Basophils % (auto) 0.3 % (0.0-2.0); Eosinophils # (auto) 0 10 ^3/uL (0-0.8); Eosinophils % (auto) 0.2 % (0.0-7.0); Hematocrit 37.3 % (36.0-46.0); Hemoglobin 12.8 g/dL (12.2-16.2); Lymphocytes # (auto) 0.5 10 ^3/uL (0.4-5.4); Lymphocytes % (auto) 3.9 % (10.0-50.0); Mean Corpuscular Hemoglobin 30.8 pg (28.0-32.0); Mean Corpuscular Hgb Conc. 34.4 g/dL (32.0-36.0); Mean Corpuscular Volume 89.5 fL (80.0-100.0); Monocytes # (auto) 0.8 10 ^3/uL (0-1.3); Monocytes % (auto) 6.5 % (0.0-12.0); Neutrophils # (auto) 10.7 10 ^3/uL (1.6-8.6); Neutrophils % (auto) 89.1 % (37.0-80.0); Platelet Count (auto) 185 10^3/uL (140-450); Red Blood Cells 4.17 10^6/uL (4.0-5.20); Red Cell Distribution Width 14.3 % (11.8-14.3)
[2025-05-09] MEDS: PANTOPRAZOLE 40 MG/10 ML VIAL INJ IV ONE (02:50)
[2025-05-09 03:10] LABS: Anion Gap 12 (5-15); BUN/Creatinine Ratio 19.2 (10.0-20.0); Blood Urea Nitrogen 15 mg/dL (9-23); Chloride 103 mmol/L (98-107); Potassium 3.7 mmol/L (3.5-5.1); Total Protein 5.9 g/dL (5.7-8.2)
[2025-05-09 03:11] LABS: Albumin 3.7 g/dL (3.2-4.8)
[2025-05-09 03:14] LABS: Alanine Aminotransferase 156 U/L (7-40); Alkaline Phosphatase 272 U/L (46-116); Aspartate Aminotransferase 159 U/L (0-34); Bilirubin, Total 3.7 mg/dL (0.2-1.0); Carbon Dioxide 18 mmol/L (20-31); Glucose 108 mg/dL (74-106); Sodium 133 mmol/L (136-145)
[2025-05-09 03:42] LABS: Bilirubin, Direct 2.6 mg/dL (<0.3)
[2025-05-09 06:31] LABS: INR 1.19 (0.9-1.15); Partial Thromboplastin Time 32.5 SEC (24.5-34.5); Prothrombin Time 12.4 sec (9.3-11.8)
[2025-05-09] MEDS ORDERED: cefTRIAXone 1GM/50ML D5W 50 ML IV SCH (09:00)
[2025-05-09] MEDS ORDERED: ENOXAPARIN SOD 40 MG/0.4 ML SYRINGE SC SCH (10:00)
[2025-05-09] MEDS: ACETAMINOPHEN 325 MG TAB PO ONE ×2 (10:45→16:37)
[2025-05-09] MEDS: NIFEdipine ER 30 MG TAB PO SCH (10:46)
--- NOTE | 2025-05-09 11:27 | DVH ---
CLINICAL INFORMATION: Rule out choledocholithiasis. Indication for recent ultrasound and CT was abdom inal pain. TECHNIQUE: Multisequence multiplanar MRI images of the abdomen were obtained without IV contrast. [facility] T2-weighted MRCP images were obtained. 3D MRCP images were created. COMPARISON: Ultrasound and CT dated 05/08/2025. FINDINGS: There is debris within the gallbladder, possible small gallstones. Gallbladder is distended , similar to recent exams. Common bile duct measures up to 8 mm in diameter, mildly dilated. No fill ing defect or stricture identified in the common bile duct on MRCP. Prominent duodenal diverticulum n oted adjacent to the pancreatic head and common bile duct. The liver, spleen, pancreas, and adrenal g lands are unremarkable. There is no hydronephrosis in either kidney. Small T2 hyperintense foci in th e kidneys bilaterally possible small cysts, but not well characterized on noncontrast enhanced MRI. N o abdominal aortic aneurysm. No other significant findings are seen in the abdomen. IMPRESSION: 1. Mildly dilated common bile duct. No filling defect or stricture identified in the common bile duct on MRCP. 2. Distended gallbladder with mild debris, possibly small gallstones within the gallbladder, correlat ing with the findings on ultrasound. 3. Prominent duodenal diverticulum adjacent to the common bile duct and pancreatic head. A degree of compression of the distal common bile duct by the duodenal diverticulum can not be excluded. Correla te with clinical findings. 4. Additional findings as described above.
--- NOTE | 2025-05-09 11:34 | DVHINCON2 ---
Date of service: May 09, 2025 History of Present Illness 72-year-old female with history of hypertension, CKD, subarachnoid hemorrhage x2 admitted secondary to bilateral upper quadrant abdominal pain associated with nausea and vomiting. The pain started about six days ago. She denies any fevers or chills. Past Medical History History of subarachnoid hemorrhage x2. Hypothyroidism. Hypertension. CKD. Past Surgical History Prolapsed bladder repair in 2009. Family History: Patient reports no known family medical history. Family History Noncontributory Social History Smokes marijuana. Denies any alcohol or IV drug use. Allergies: Coded Allergies: Aspirin (Verified Allergy, Unknown, 08/03/22) Diclofenac (Verified Allergy, Unknown, 08/03/22) Pentazocine (Verified Allergy, Unknown, 08/03/22) Home Meds Reported Medications Valsartan (Valsartan) 80 Mg Tab, 1 TAB PO DAILY 05/08/25 Oxybutynin Chloride (Oxybutynin Chloride) 5 Mg Tab, 1 TAB PO BID 05/08/25 Nifedipine (Nifedipine Er) 30 Mg Tab, 30 MG PO DAILY 05/08/25 Methenamine Hippurate (Methenamine Hippurate) 1 Gm Tab, 1 TAB PO DAILY 05/08/25 Levothyroxine Sodium (Levothyroxine Sodium) 88 Mcg Tab, 1 TAB PO DAILY 05/08/25 Gabapentin (Gabapentin) 600 Mg Tab, 600 MG PO BID 05/08/25 Famotidine (Famotidine) 20 Mg Tab, 1 TAB PO BID 05/08/25 Atorvastatin Calcium (ATORVASTATIN CALCIUM) 10 Mg Tab, 1 TAB PO HS 05/08/25 Current Medications Current Medications Medications (Trade) Dose Ordered Sig/Katie Route PRN Reason Start Time Stop Time Status Last Admin Ondansetron HCl (Zofran) 4 mg Q6HPRN PRN IV NAUSEA / VOMITING 05/08/25 21:30 Ceftriaxone Sodium 50 ml @ 100 mls/hr DAILY@09 IV 05/09/25 09:00 05/09/25 01:43 DC Metronidazole 100 ml @ 100 mls/hr Q8HR IV 05/08/25 22:00 05/09/25 05:26 Ceftriaxone Sodium/Dextrose 50 ml @ 50 mls/hr Q24H IV 05/09/25 21:00 Pantoprazole Sodium (Protonix) 40 mg DAILY IV 05/09/25 12:00 Enoxaparin Sodium (Lovenox) 40 mg DAILY SC 05/09/25 10:00 05/09/25 03:50 DC Acetaminophen (Tylenol Tablet) 650 mg Q6HP PRN PO MILD PAIN (1-3 PAIN SCALE) 05/09/25 10:15 Nifedipine (Procardia Xl (Time-Release)) 30 mg DAILY PO 05/09/25 10:15 05/09/25 10:46 Vital Signs Vital Signs Date Time Temp Pulse Resp B/P (MAP) Pulse Ox O2 Delivery O2 Flow Rate FiO2 05/09/25 10:46 135/80 05/09/25 05:00 98.2 75 20 94 98.2 05/08/25 22:49 Room Air* 0 21 Physical Exam GEN: Holiday female in no acute distress. Alert. HEENT: Normocephalic atraumatic. Moist mucous membranes. Slight scleral icterus. CV: RRR Respiratory: CTAB ABD: Diffuse tenderness to palpation especially in the right upper quadrant epigastric region without guarding or rebound. Nondistended. CT of the abdomen and pelvis: Unremarkable except for diverticulosis. Abdominal ultrasound: Cholelithiasis with borderline gallbladder wall thickening. Common bile duct at 7 mm. Negative sonographic Bailey's sign. Labs/Diagnostic Data Labs Test 05/09/25 05:13 05/09/25 01:59 05/08/25 17:06 05/08/25 14:20 Range/Units Prothrombin Time 12.4 H 9.3-11.8 sec Prothrombin Time INR 1.19 H 0.9-1.15 Activated Partial Thromboplast Time 32.5 24.5-34.5 SEC White Blood Count 12.0 H 4.4-10.8 10^3/uL Red Blood Count 4.17 4.0-5.20 10^6/uL Hemoglobin 12.8 12.2-16.2 g/dL Hematocrit 37.3 36.0-46.0 % Mean Corpuscular Volume 89.5 80.0-100.0 fL Mean Corpuscular Hemoglobin 30.8 28.0-32.0 pg Mean Corpuscular Hemoglobin Concent 34.4 32.0-36.0 g/dL Red Cell Distribution Width 14.3 11.8-14.3 % Platelet Count 185 140-450 10^3/uL Mean Platelet Volume 6.5 L 6.9-10.8 fL Neutrophils (%) (Auto) 89.1 H 37.0-80.0 % Lymphocytes (%) (Auto) 3.9 L 10.0-50.0 % Monocytes (%) (Auto) 6.5 0.0-12.0 % Eosinophils (%) (Auto) 0.2 0.0-7.0 % Basophils (%) (Auto) 0.3 0.0-2.0 % Neutrophils # (Auto) 10.7 H 1.6-8.6 10 ^3/uL Lymphocytes # (Auto) 0.5 0.4-5.4 10 ^3/uL Monocytes # (Auto) 0.8 0-1.3 10 ^3/uL Eosinophils # (Auto) 0 0-0.8 10 ^3/uL Basophils # (Auto) 0 0-0.2 10 ^3/uL Nucleated Red Blood Cells 0.0 % Sodium Level 133 L 136-145 mmol/L Potassium Level 3.7 3.5-5.1 mmol/L Chloride Level 103 98-107 mmol/L Carbon Dioxide Level 18 L 20-31 mmol/L Anion Gap 12 5-15 Blood Urea Nitrogen 15 9-23 mg/dL Creatinine 0.78 0.550-1.02 mg/dL Glomerular Filtration Rate Calc 78 >90 mL/min BUN/Creatinine Ratio 19.2 10.0-20.0 Serum Glucose 108 H 74-106 mg/dL Calcium Level 9.0 8.7-10.4 mg/dL Total Bilirubin 3.7 H 0.2-1.0 mg/dL Direct Bilirubin 2.6 H <0.3 mg/dL Aspartate Amino Transferase (AST) 159 H 0-34 U/L Alanine Aminotransferase (ALT) 156 H 7-40 U/L Alkaline Phosphatase 272 H 46-116 U/L Total Protein 5.9 5.7-8.2 g/dL Albumin 3.7 3.2-4.8 g/dL Vitamin B12 Level 891 211-911 pg/mL Thyroid Stimulating Hormone (TSH) 0.52 L 0.55-4.78 uIU/mL Urine Color Yellow Yellow Urine Clarity Clear Clear Urine pH 6.0 5.0-9.0 Urine Specific [place] 1.008 1.001-1.035 Urine Protein Negative Negative Urine Ketones Negative Negative Urine Blood 2+ H Negative /uL Urine Nitrite Negative Negative Urine Bilirubin Negative Negative Urine Urobilinogen Normal Negative mg/dL Urine Leukocyte Esterase 3+ Negative /uL Urine RBC 4 0 - 4 /hpf Urine Microscopic WBC 20 H 0-5 /HPF Urine Squamous Epithelial Cells Few <5 /hpf Urine Bacteria Many H None Seen /hpf Urine Glucose Normal Normal mg/dL Lipase 31 12-53 U/L Test 05/08/25 13:14 Range/Units POC Glucose 145 H 70-106 mg/dl Assessment 1. Cholelithiasis with possible chronic cholecystitis. 2. Hyperbilirubinemia suspicious for possible biliary obstruction. Plan/Recommendation 1. MRCP results are pending 2. Awaiting GI consultation for possibility of ERCP. 3. Discussed surgery and the risks with the patient and the daughter. Plan discussed with: Patient, Daughter SANDRO CHACON MD May 09, 2025 11:33
[2025-05-09] MEDS: PANTOPRAZOLE 40 MG/10 ML VIAL INJ IV SCH (12:05)
[2025-05-09] MEDS: SODIUM CHLORIDE 0.9% 1,000 ML IV SCH (12:08)
[2025-05-09] MEDS: PIPERACILLIN-TAZOB 3.375GM 100 ML IV ONE (13:37)
[2025-05-09] MEDS: LACTATED RINGER'S 1,000 ML IV SCH (15:12)
--- NOTE | 2025-05-09 15:27 | DVHPNRES ---
Progress Note Date Seen: May 09, 2025 Resident Creating Document: GABINO LATIF RESIDENT Medical Necessity Reason Pt with a Central, PICC or Fol: No Subjective Review of Systems Patient is a 79-year-old with a past medical history of hypertension, CKD, cerebrovascular bleed (subarachnoid bleed x2), hypothyroidism, hyperlipidemia presented to the ER with a chief complaint of abdominal pain for about 6 days. Patient reported sudden onset upper abdominal pain across the right upper quadrant to the left upper quadrant on Monday last week following which she had 1 episode of vomiting which was large in amount and no blood was seen. Since that episode patient has had intermittent right upper quadrant abdominal pain, nonradiating, did not worsen on eating food, no postural variation, denied any further episodes of vomiting, reported decreased appetite. To do the right upper abdominal pain got worse following which she came to the hospital for further evaluation. She denied any fever, chills, diarrhea or constipation. Patient has a history of prolapsed bladder/rectum status post repair in 2009 and follows up with the Dr. Orozco and self caths twice in the day in the morning and in the evening before going to bed. Patient denies any a similar episode of abdominal pain previously. Past medical history: As per HPI Past surgical history: Hysterectomy, hernia repair, prolapsed bladder/rectum surgery Social history: Patient denies smoking, drinking alcohol but reports smoking 1 joint of marijuana every day but denies any other drug usage Home medications: Levothyroxine 88 mcg, valsartan 80 mg, nifedipine 30 mg, gabapentin 600 b.i.d., oxybutynin 5 mg Patient seen and examined at the bedside. Prelim blood culture showing Gram- negative rods, IV Zosyn started. Objective vital signs Vital Sign Date Time Temp Pulse Resp B/P (MAP) Pulse Ox O2 Delivery O2 Flow Rate FiO2 05/09/25 10:46 135/80 05/09/25 08:15 71 18 95 Room Air* 0 21 05/09/25 05:00 98.2 98.2 Total Intake and Output 05/08/25 05/08/25 05/09/25 15:00 23:00 07:00 Intake Total 1150 ml Balance 1150 ml medications Current Medications Medications Dose Ordered Sig/Katie Route Start Time Stop Time Status Last Admin Dose Admin Ondansetron HCl 4 mg Q6HPRN PRN IV 05/08/25 21:30 Pantoprazole Sodium 40 mg DAILY IV 05/09/25 12:00 05/09/25 12:05 40 MG Acetaminophen 650 mg Q6HP PRN PO 05/09/25 10:15 Nifedipine 30 mg DAILY PO 05/09/25 10:15 05/09/25 10:46 30 MG Piperacillin Sod/ Tazobactam Sod 100 ml @ 25 mls/hr Q8HR IV 05/09/25 22:00 Lactated Ringer's 1,000 ml @ 100 mls/hr Q10H IV 05/09/25 12:30 05/09/25 15:12 100 MLS/HR Examination Patient lying in bed, in no acute distress General: Well-built, afebrile, mucosae are moist Cardiovascular: Regular S1 and S2. No murmurs, gallops or rubs. No JVD elevation. No pedal edema Respiratory: Normal B/L air entry on room air. Clear lung sounds on auscultation Abdomen: Soft, right upper quadrant tenderness, positive Bailey sign n ondistended, normoactive bowel sounds, no rebound tenderness, no organomegaly, no masses Genitourinary: Deferred MSK/skin: Mobilizes 4 limbs. Skin is dry and warm Neurological: No motor, no sensitive deficits, normal speech. Pupils are isocoric and reactive. Psych/Mental Status: A/Ox3 laboratory and microbiology Laboratory Tests 05/09/25 01:59 Test 05/09/25 01:59 Range/Units Serum Glucose 108 H 74-106 mg/dL Microbiology Date/Time Source Procedure Growth Status 05/08/25 21:47 Blood Blood Culture - Preliminary Resulted Labs and/or images reviewed: Labs reviewed by me, Image(s) reviewed by me Problem List/Assessment/Plan Problem List/Assessment/Plan Sepsis secondary to Probable acute cholecystitis Acute abdominal pain Symptomatic Cholelithiasis Transaminitis with cholestatic pattern Rule out choledocholithiasis Possible early acute cholangitis ? Duodenal diverticulum - elevated total bilirubin with increased direct bilirubin - CT abdomen pelvis without contrast shows distended gallbladder - gallbladder ultrasound borderline gallbladder wall thickening with a cholelithiasis, common bile duct measures 0.7 cm - IV fluids as LR, IV Zosyn starting 05/09, previously receiving IV ceftriaxone and metronidazole - MRCP shows mildly dilated CBD. No filling defect or stricture identified in CBD. Distended gallbladder with mild debris. Possible small gallstones within gallbladder. 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 Degree of distal common bile duct compression by the duodenal diverticulum can not be excluded. 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 daily Clear liquid diet PUD prophylaxis: Protonix DVT prophylaxis: SCDs, held because of h/o cv bleed Plan of care discussed with patient in which all questions have been answered Goals of care discussed for more than 30 minutes, full code status Plan discussed with Dr. Meneses Plan discussed with: Patient, Daughter (At the bedside) My Orders My Orders Orders - GABINO LATIF Procedure Category Date Status Time Covid19 Antigen Yael LAB 05/09/25 Logged 07:55 Rapid Influenza A&B LAB 05/09/25 Logged 07:55 Acetaminophen Tablet PHA 05/09/25 In Process (Tylenol Tablet) 10:15 Nifedipine Er PHA 05/09/25 In Process (Procardia Xl 10:15 Piperacillin-Tazob PHA 05/09/25 In Process 3.375gm (Zosyn 3.375g 22:00 Lactated Ringer's PHA 05/09/25 In Process 12:30 Date of Service: May 09, 2025 Billing Provider: PATRICIA MENESES MD Common Visit Codes: 44598-[id number] INP/OBS CARE(HIGH) Secondary Visit Codes: [id number] CARE PLAN 30 MINUTES GABINO LATIF May 09, 2025 15:27 PATRICIA MENESES MD May 10, 2025 21:58
--- NOTE | 2025-05-09 16:01 | DVHINCON2 ---
Date of service: May 09, [address] Head Reason for Consultation Elevated liver enzymes History of Present Illness 72-year-old female with history of hypertension, CKD, subarachnoid hemorrhage x2 admitted secondary to right upper quadrant abdominal pain associated with nausea and vomiting. The pain started about six days ago. She denies any fevers or chills. She was diagnosed with cholelithiasis suspected cholecystitis and had elevated liver enzymes. Patient is currently sleeping comfortably with no nausea and vomiting MRCP was negative for CBD stones but she does have gallbladder sludge and tiny stones. Her blood culture was positive for Gram-negative rods. She also has mild UTI Past Medical History Past Medical History History of subarachnoid hemorrhage x2. Hypothyroidism. Hypertension. CKD. Past Surgical History Past Surgical History Prolapsed bladder repair in 2009. Family History: Patient reports no known family medical history. Allergies: Coded Allergies: Aspirin (Verified Allergy, Unknown, 08/03/22) Diclofenac (Verified Allergy, Unknown, 08/03/22) Pentazocine (Verified Allergy, Unknown, 08/03/22) Home Meds Reported Medications Valsartan (Valsartan) 80 Mg Tab, 1 TAB PO DAILY 05/08/25 Oxybutynin Chloride (Oxybutynin Chloride) 5 Mg Tab, 1 TAB PO BID 05/08/25 Nifedipine (Nifedipine Er) 30 Mg Tab, 30 MG PO DAILY 05/08/25 Methenamine Hippurate (Methenamine Hippurate) 1 Gm Tab, 1 TAB PO DAILY 05/08/25 Levothyroxine Sodium (Levothyroxine Sodium) 88 Mcg Tab, 1 TAB PO DAILY 05/08/25 Gabapentin (Gabapentin) 600 Mg Tab, 600 MG PO BID 05/08/25 Famotidine (Famotidine) 20 Mg Tab, 1 TAB PO BID 05/08/25 Atorvastatin Calcium (ATORVASTATIN CALCIUM) 10 Mg Tab, 1 TAB PO HS 05/08/25 Current Medications Current Medications Medications (Trade) Dose Ordered Sig/Katie Route PRN Reason Start Time Stop Time Status Last Admin Ondansetron HCl (Zofran) 4 mg Q6HPRN PRN IV NAUSEA / VOMITING 05/08/25 21:30 Ceftriaxone Sodium 50 ml @ 100 mls/hr DAILY@09 IV 05/09/25 09:00 05/09/25 01:43 DC Metronidazole 100 ml @ 100 mls/hr Q8HR IV 05/08/25 22:00 05/09/25 12:15 DC 05/09/25 05:26 Ceftriaxone Sodium/Dextrose 50 ml @ 50 mls/hr Q24H IV 05/09/25 21:00 05/09/25 12:15 DC Pantoprazole Sodium (Protonix) 40 mg DAILY IV 05/09/25 12:00 05/09/25 12:05 Enoxaparin Sodium (Lovenox) 40 mg DAILY SC 05/09/25 10:00 05/09/25 03:50 DC Acetaminophen (Tylenol Tablet) 650 mg Q6HP PRN PO MILD PAIN (1-3 PAIN SCALE) 05/09/25 10:15 Nifedipine (Procardia Xl (Time-Release)) 30 mg DAILY PO 05/09/25 10:15 05/09/25 10:46 Sodium Chloride 1,000 ml @ 100 mls/hr Q10H IV 05/09/25 12:00 05/09/25 12:19 DC 05/09/25 12:08 Piperacillin Sod/ Tazobactam Sod 100 ml @ 25 mls/hr Q8HR IV 05/09/25 22:00 Lactated Ringer's 1,000 ml @ 100 mls/hr Q10H IV 05/09/25 12:30 05/09/25 15:12 Levothyroxine Sodium (Synthroid Tablet) 88 mcg DAILY PO 05/10/25 10:00 Vital Signs Vital Signs Date Time Temp Pulse Resp B/P (MAP) Pulse Ox O2 Delivery O2 Flow Rate FiO2 05/09/25 13:00 98.7 62 17 112/72 (85) 94 98.7 05/09/25 08:15 Room Air* 0 21 Physical Exam General: Well-built, afebrile, mucosae are moist Cardiovascular: Regular S1 and S2. No murmurs, gallops or rubs. No JVD elevation. No pedal edema Respiratory: Normal B/L air entry on room air. Clear lung sounds on auscultation Abdomen: Soft, right upper quadrant tenderness, positive Bailey sign nondistended, normoactive bowel sounds, no rebound tenderness, no organomegaly, no masses Genitourinary: Deferred MSK/skin: Mobilizes 4 limbs. Skin is dry and warm Neurological: No motor, no sensitive deficits, normal speech. Pupils are isocoric and reactive. Psych/Mental Status: A/Ox3 Labs/Diagnostic Data Labs Test 05/09/25 05:13 05/09/25 01:59 05/08/25 17:06 05/08/25 14:20 Range/Units Prothrombin Time 12.4 H 9.3-11.8 sec Prothrombin Time INR 1.19 H 0.9-1.15 Activated Partial Thromboplast Time 32.5 24.5-34.5 SEC White Blood Count 12.0 H 4.4-10.8 10^3/uL Red Blood Count 4.17 4.0-5.20 10^6/uL Hemoglobin 12.8 12.2-16.2 g/dL Hematocrit 37.3 36.0-46.0 % Mean Corpuscular Volume 89.5 80.0-100.0 fL Mean Corpuscular Hemoglobin 30.8 28.0-32.0 pg Mean Corpuscular Hemoglobin Concent 34.4 32.0-36.0 g/dL Red Cell Distribution Width 14.3 11.8-14.3 % Platelet Count 185 140-450 10^3/uL Mean Platelet Volume 6.5 L 6.9-10.8 fL Neutrophils (%) (Auto) 89.1 H 37.0-80.0 % Lymphocytes (%) (Auto) 3.9 L 10.0-50.0 % Monocytes (%) (Auto) 6.5 0.0-12.0 % Eosinophils (%) (Auto) 0.2 0.0-7.0 % Basophils (%) (Auto) 0.3 0.0-2.0 % Neutrophils # (Auto) 10.7 H 1.6-8.6 10 ^3/uL Lymphocytes # (Auto) 0.5 0.4-5.4 10 ^3/uL Monocytes # (Auto) 0.8 0-1.3 10 ^3/uL Eosinophils # (Auto) 0 0-0.8 10 ^3/uL Basophils # (Auto) 0 0-0.2 10 ^3/uL Nucleated Red Blood Cells 0.0 % Sodium Level 133 L 136-145 mmol/L Potassium Level 3.7 3.5-5.1 mmol/L Chloride Level 103 98-107 mmol/L Carbon Dioxide Level 18 L 20-31 mmol/L Anion Gap 12 5-15 Blood Urea Nitrogen 15 9-23 mg/dL Creatinine 0.78 0.550-1.02 mg/dL Glomerular Filtration Rate Calc 78 >90 mL/min BUN/Creatinine Ratio 19.2 10.0-20.0 Serum Glucose 108 H 74-106 mg/dL Calcium Level 9.0 8.7-10.4 mg/dL Magnesium Level 2.0 1.6-2.6 mg/dL Total Bilirubin 3.7 H 0.2-1.0 mg/dL Direct Bilirubin 2.6 H <0.3 mg/dL Aspartate Amino Transferase (AST) 159 H 0-34 U/L Alanine Aminotransferase (ALT) 156 H 7-40 U/L Alkaline Phosphatase 272 H 46-116 U/L Total Protein 5.9 5.7-8.2 g/dL Albumin 3.7 3.2-4.8 g/dL Vitamin B12 Level 891 211-911 pg/mL Vitamin D 25-Hydroxy 62.6 30.0-100 ng/mL Thyroid Stimulating Hormone (TSH) 0.52 L 0.55-4.78 uIU/mL Urine Color Yellow Yellow Urine Clarity Clear Clear Urine pH 6.0 5.0-9.0 Urine Specific [place] 1.008 1.001-1.035 Urine Protein Negative Negative Urine Ketones Negative Negative Urine Blood 2+ H Negative /uL Urine Nitrite Negative Negative Urine Bilirubin Negative Negative Urine Urobilinogen Normal Negative mg/dL Urine Leukocyte Esterase 3+ Negative /uL Urine RBC 4 0 - 4 /hpf Urine Microscopic WBC 20 H 0-5 /HPF Urine Squamous Epithelial Cells Few <5 /hpf Urine Bacteria Many H None Seen /hpf Urine Glucose Normal Normal mg/dL Lipase 31 12-53 U/L Test 05/08/25 13:14 Range/Units POC Glucose 145 H 70-106 mg/dl Microbiology Date/Time Source Procedure Growth Status 05/08/25 21:47 Blood Blood Culture - Preliminary Resulted MRCP IMPRESSION: 1. Mildly dilated common bile duct. No filling defect or stricture identified in the common bile duct on MRCP. 2. Distended gallbladder with mild debris, possibly small gallstones within the gallbladder, correlating with the findings on ultrasound. 3. Prominent duodenal diverticulum adjacent to the common bile duct and pancreatic head. A degree of compression of the distal common bile duct by the duodenal diverticulum can not be excluded. Correlate with clinical findings. 4. Additional findings as described above. RUQ USG Impression: 1. No evidence of acute right upper quadrant abnormalities. 2. Coarsened hepatic echotexture, nonspecific. 3. Borderline gallbladder wall thickening with cholelithiasis and negative sonographic bailey's sign. If there is clinical concern for acute cholecystitis, recommend a nuclear medicine hepatobiliary scan. CT SCAN ABD PELVIS IMPRESSION: 1. Distended gallbladder. No calcified gallstones visualized. Correlate with clinical findings. If clinically indicated, ultrasound could be obtained to further evaluate. 2. Scattered colonic diverticula without adjacent inflammatory changes to suggest diverticulitis. 3. Moderate stool in the colon. 4. Additional findings as detailed above. Problems(with codes): (1) Cholelithiasis with acute cholecystitis (2) Duodenal diverticulum (3) Gram negative sepsis (4) Acute cholecystitis (5) Intractable abdominal pain (6) Hyperbilirubinemia (7) Urinary tract infection Plan/Recommendation Plan At this time patient is comfortable and not spiking a fever ; liver enzymes are still trending up We are going to keep her on IV fluid hydration and IV antibiotics to cover her Gram-negative septicemia Continue to monitor liver enzymes, MRCP was negative for any CBD stone There was a suspicion for duodenal diverticulum possibly compressing on the distal CBD or pancreatic head Surgical follow up to decide about cholecystectomy ; continue IV antibiotics If the bilirubin continues to rise then the patient may need referral to [facility] for possible ERCP Check urine culture and final microbiology on the blood cultures I will follow this patient with you closely Plan discussed with: Other (Nurse) RIMA BIRD MD May 09, 2025 16:01
[2025-05-09] MEDS ORDERED: KETOROLAC TROMETH 30 MG/ML 1ML VIAL IV ONE (16:15)
[2025-05-09] MEDS ORDERED: cefTRIAXone 2GM/50ML D5W 50 ML IV SCH (21:00)
[2025-05-09] MEDS: PIPERACILLIN-TAZOB 3.375GM 100 ML IV SCH (21:49)
[2025-05-10] VITALS (7 sets, daily range): BP systolic 101–106; BP diastolic 50–62; PULSE 68–82; RESP 16–20; TEMP 97.1–97.7; O2SAT 94–98
[2025-05-10 06:33] LABS: Basophils # (auto) 0 10 ^3/uL (0-0.2); Basophils % (auto) 0.4 % (0.0-2.0); Eosinophils # (auto) 0.1 10 ^3/uL (0-0.8); Eosinophils % (auto) 0.8 % (0.0-7.0); Hematocrit 36.3 % (36.0-46.0); Hemoglobin 12.8 g/dL (12.2-16.2); Lymphocytes # (auto) 1.2 10 ^3/uL (0.4-5.4); Lymphocytes % (auto) 12.2 % (10.0-50.0); Mean Corpuscular Hemoglobin 31.7 pg (28.0-32.0); Mean Corpuscular Hgb Conc. 35.2 g/dL (32.0-36.0); Monocytes % (auto) 10.8 % (0.0-12.0); Neutrophils # (auto) 7.2 10 ^3/uL (1.6-8.6); Neutrophils % (auto) 75.8 % (37.0-80.0); Platelet Count (auto) 197 10^3/uL (140-450); Red Blood Cells 4.04 10^6/uL (4.0-5.20); Red Cell Distribution Width 14.1 % (11.8-14.3); White Blood Cell 9.5 10^3/uL (4.4-10.8)
[2025-05-10 07:00] LABS: Albumin 3.6 g/dL (3.2-4.8); Anion Gap 13 (5-15); BUN/Creatinine Ratio 15.7 (10.0-20.0); Blood Urea Nitrogen 11 mg/dL (9-23); Calcium 9.1 mg/dL (8.7-10.4); Chloride 105 mmol/L (98-107); Glucose 84 mg/dL (74-106); Potassium 3.5 mmol/L (3.5-5.1); Sodium 137 mmol/L (136-145); Total Protein 5.9 g/dL (5.7-8.2)
[2025-05-10 07:01] LABS: Alanine Aminotransferase 86 U/L (7-40); Alkaline Phosphatase 247 U/L (46-116); Aspartate Aminotransferase 40 U/L (<34); Bilirubin, Total 1.5 mg/dL (0.2-1.0); Carbon Dioxide 19 mmol/L (20-31)
[2025-05-10] MEDS: LEVOTHYROXINE SODIUM 88 MCG TAB PO SCH (10:24)
--- NOTE | 2025-05-10 11:21 | DVHPNRES ---
Progress Note Date Seen: May 10, 2025 Resident Creating Document: PERRY CHAVARRIA RESIDENT Medical Necessity Reason Pt with a Central, PICC or Fol: No Subjective Review of Systems To the patient seen and examined at bedside, no complaint of abdominal pain nausea or vomiting. Patient's total bilirubin went down to 1.5 from 3.7. Surgery and GI consult appreciated. Objective vital signs Vital Sign Date Time Temp Pulse Resp B/P (MAP) Pulse Ox O2 Delivery O2 Flow Rate FiO2 05/10/25 10:23 120/73 05/10/25 09:00 97.7 82 18 94 97.7 05/10/25 08:20 Room Air* 0 21 Total Intake and Output 05/09/25 05/09/25 05/10/25 15:00 23:00 07:00 Intake Total 200 ml 200 ml Balance 200 ml 200 ml medications Current Medications Medications Dose Ordered Sig/Katie Route Start Time Stop Time Status Last Admin Dose Admin Ondansetron HCl 4 mg Q6HPRN PRN IV 05/08/25 21:30 Pantoprazole Sodium 40 mg DAILY IV 05/09/25 12:00 05/10/25 10:20 40 MG Acetaminophen 650 mg Q6HP PRN PO 05/09/25 10:15 Nifedipine 30 mg DAILY PO 05/09/25 10:15 05/10/25 10:23 30 MG Piperacillin Sod/ Tazobactam Sod 100 ml @ 25 mls/hr Q8HR IV 05/09/25 22:00 05/10/25 05:23 25 MLS/HR Lactated Ringer's 1,000 ml @ 100 mls/hr Q10H IV 05/09/25 12:30 05/10/25 03:21 100 MLS/HR Levothyroxine Sodium 88 mcg DAILY PO 05/10/25 10:00 05/10/25 10:24 88 MCG Examination General: Well-built, afebrile, mucosae are moist Cardiovascular: Regular S1 and S2. No murmurs, gallops or rubs. No JVD elevation. No pedal edema Respiratory: Normal B/L air entry on room air. Clear lung sounds on auscultation Abdomen: Soft, right upper quadrant tenderness, positive Bailey sign n ondistended, normoactive bowel sounds, no rebound tenderness, no organomegaly, no masses Genitourinary: Deferred MSK/skin: Mobilizes 4 limbs. Skin is dry and warm Neurological: No motor, no sensitive deficits, normal speech. Pupils are isocoric and reactive. Psych/Mental Status: A/Ox3 laboratory and microbiology Laboratory Tests 05/10/25 05:37 Test 05/10/25 05:37 Range/Units Serum Glucose 84 74-106 mg/dL Microbiology Date/Time Source Procedure Growth Status 05/08/25 21:47 Blood Blood Culture - Preliminary Resulted Problem List/Assessment/Plan Problem List/Assessment/Plan # Sepsis secondary to Probable acute cholecystitis # Acute abdominal pain # Symptomatic Cholelithiasis # Transaminitis with cholestatic pattern # Rule out choledocholithiasis # Possible early acute cholangitis # ? Duodenal diverticulum - elevated total bilirubin with increased direct bilirubin -today total bilirubin is 1.5 - CT abdomen pelvis without contrast shows distended gallbladder - gallbladder ultrasound borderline gallbladder wall thickening with a cholelithiasis, common bile duct measures 0.7 cm - IV fluids as LR, IV Zosyn starting 05/09, previously receiving IV ceftriaxone and metronidazole - MRCP shows mildly dilated CBD. No filling defect or stricture identified in CBD. Distended gallbladder with mild debris. Possible small gallstones within gallbladder. 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 Degree of distal common bile duct compression by the duodenal diverticulum can not be excluded. - blood culture showing prelim Gram Negative Rods,Identification and Susceptibility to follow. 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 daily Clear liquid diet PUD prophylaxis: Protonix DVT prophylaxis: SCDs, held because of h/o cv bleed Goals of care discussed for 21 minutes, full code status Plan discussed with Dr. Meneses Plan discussed with: Patient Date of Service: May 10, 2025 Billing Provider: PATRICIA MENESES MD Common Visit Codes: [id number] INP/OBS CARE(HIGH) PERRY CHAVARRIA RESIDENT May 10, 2025 11:21 PATRICIA MENESES MD May 10, 2025 21:59
--- NOTE | 2025-05-10 11:59 | DVHPN2 ---
Progress Note - Dictate Date Seen: May 10, 2025 Medical Necessity Reason Pt with a Central, PICC or Fol: No Subjective E: no major events o/n. feels slt better today. antoinette clear liquid diet. vital signs Vital Sign Date Time Temp Pulse Resp B/P (MAP) Pulse Ox O2 Delivery O2 Flow Rate FiO2 05/10/25 10:23 120/73 05/10/25 09:00 97.7 82 18 94 97.7 05/10/25 08:20 Room Air* 0 21 Total Intake and Output 05/09/25 05/09/25 05/10/25 14:59 22:59 06:59 Intake Total 200 ml 200 ml Balance 200 ml 200 ml medications Current Medications Medications Dose Ordered Sig/Katie Route Start Time Stop Time Status Last Admin Dose Admin Ondansetron HCl 4 mg Q6HPRN PRN IV 05/08/25 21:30 Pantoprazole Sodium 40 mg DAILY IV 05/09/25 12:00 05/10/25 10:20 40 MG Acetaminophen 650 mg Q6HP PRN PO 05/09/25 10:15 Nifedipine 30 mg DAILY PO 05/09/25 10:15 05/10/25 10:23 30 MG Piperacillin Sod/ Tazobactam Sod 100 ml @ 25 mls/hr Q8HR IV 05/09/25 22:00 05/10/25 05:23 25 MLS/HR Lactated Ringer's 1,000 ml @ 100 mls/hr Q10H IV 05/09/25 12:30 05/10/25 03:21 100 MLS/HR Levothyroxine Sodium 88 mcg DAILY PO 05/10/25 10:00 05/10/25 10:24 88 MCG objective GEN: NAD ABD: soft. min epigastric/RUQ TTP with less TTP. laboratory and microbiology Laboratory Tests 05/10/25 05:37 Test 05/10/25 05:37 Range/Units Serum Glucose 84 74-106 mg/dL Assessment/Plan A: 1. Cholelithiasis with possible chronic cholecystitis. 2. Hyperbilirubinemia trending down. poss passed CBD stone. P: 1. recheck LFTs in AM. if they continue to trend down, proceed with cholecystectomy tomorrow. Plan discussed with: Patient, Daughter SANDRO CHACON MD May 10, 2025 11:59
[2025-05-11] VITALS (8 sets, daily range): BP systolic 102–132; BP diastolic 48–78; PULSE 54–94; RESP 13–18; TEMP 97.3–98; O2SAT 96–99
[2025-05-11 07:39] LABS: Basophils # (auto) 0 10 ^3/uL (0-0.2); Basophils % (auto) 0.5 % (0.0-2.0); Eosinophils # (auto) 0.1 10 ^3/uL (0-0.8); Eosinophils % (auto) 1.6 % (0.0-7.0); Hematocrit 39.2 % (36.0-46.0); Hemoglobin 13.5 g/dL (12.2-16.2); Lymphocytes # (auto) 1.2 10 ^3/uL (0.4-5.4); Lymphocytes % (auto) 13.5 % (10.0-50.0); Mean Corpuscular Hemoglobin 30.9 pg (28.0-32.0); Mean Corpuscular Hgb Conc. 34.3 g/dL (32.0-36.0); Mean Corpuscular Volume 89.9 fL (80.0-100.0); Monocytes % (auto) 11.1 % (0.0-12.0); Neutrophils # (auto) 6.3 10 ^3/uL (1.6-8.6); Neutrophils % (auto) 73.3 % (37.0-80.0); Nucleated Red Blood Cells % 0.1 %; Platelet Count (auto) 224 10^3/uL (140-450); Red Blood Cells 4.36 10^6/uL (4.0-5.20); Red Cell Distribution Width 14.1 % (11.8-14.3); White Blood Cell 8.6 10^3/uL (4.4-10.8)
--- NOTE | 2025-05-11 08:00 | ECG ---
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
--- NOTE | 2025-05-11 08:11 | DVH ---
CHEST RADIOGRAPH Indication: SURGERY ([place]) Technique: Single frontal view of the chest was obtained COMPARISON: CHEST PORTABLE on DOS: 08/03/22, CXRP on DOS: 08/03/22 FINDINGS: Lines and Tubes: None Lungs: Clear Pleura: No effusion. No pneumothorax. Cardiomediastinal contours: Unremarkable Bones: Unremarkable IMPRESSION: No acute disease.
[2025-05-11 08:19] LABS: Albumin 3.9 g/dL (3.2-4.8); Anion Gap 14 (5-15); Aspartate Aminotransferase 28 U/L (<34); BUN/Creatinine Ratio 15.7 (10.0-20.0); Blood Urea Nitrogen 11 mg/dL (9-23); Glucose 84 mg/dL (74-106); Sodium 141 mmol/L (136-145); Total Protein 6.3 g/dL (5.7-8.2)
[2025-05-11 08:22] LABS: Alanine Aminotransferase 66 U/L (7-40); Alkaline Phosphatase 296 U/L (46-116); Bilirubin, Total 1.4 mg/dL (0.2-1.0); Carbon Dioxide 20 mmol/L (20-31); Chloride 107 mmol/L (98-107); Potassium 3.2 mmol/L (3.5-5.1)
[2025-05-11] MEDS: SUCCINYLCHOLINE CHLORIDE 20 MG/ML 10ML VIAL IV ONE (09:39)
[2025-05-11] MEDS ORDERED: fentaNYL CITRATE 100 MCG/2 ML VL ONE (09:42)
[2025-05-11] MEDS ORDERED: HYDROmorphone HCL 2 MG/ML VL/or syr ONE (09:43)
[2025-05-11] MEDS ORDERED: PROPOFOL 10 MG/ML 20 ML IV ONE (09:43)
[2025-05-11] MEDS: ceFAZolin 2 GM/D5W50ml 50 ML IV ONE (09:53)
[2025-05-11] MEDS ORDERED: ROCURONIUM 10MG/ML 10ML VIAL IV ONE (10:03)
[2025-05-11] MEDS ORDERED: ePHEDrine SULFATE 50 MG/ML AMP ONE (10:10)
[2025-05-11] MEDS: LIDOCAINE 1%-Mpf/Epinephrine 1:200,000 30ml VIAL ONE (10:10)
[2025-05-11] MEDS ORDERED: DexAMETHasone SOD PHOS 10MG/1ML VIAL INJ ONE (10:14)
[2025-05-11] MEDS ORDERED: ONDANSETRON HCL 4 MG/2 ML VIAL ONE (10:14)
[2025-05-11] MEDS ORDERED: SUGAMMADEX 200mg/2ml Vial (100MG/ML) IV ONE (10:53)
--- NOTE | 2025-05-11 11:09 | DVHOP2 ---
Operative Report - 2 Report Details Date: 05/11/25 Preop Diagnosis: 1. Cholecystitis Postop Diagnosis: 1. Cholecystitis 2. Numerous small liver lesions Surgeon: Sandro Nelson MD Mapping Editor: None Anesthesiologist: Dr. Walsh Anesthesia: General, Local Drains: Fifteen Nigerien Blu drain Consent: The surgery and its risks including but not limited to infection, bleeding requiring possible blood transfusion with the risk of hepatitis or HIV infection, possible open surgery, possible cystic duct leak or retained common bile duct stone requiring further intervention such as an ERCP, possible perioperative ID or stroke were explained to the patient and her daughter. All questions were answered to their satisfaction. The patient expressed verbal understanding and wished to proceed with the surgery. Complications: Little more bleeding than expected Estimated Blood Loss: 100 mL Fluids: 500 mL Name of Procedure Performed 1. Laparoscopic cholecystectomy 2. Laparoscopic liver biopsy Procedure Details Procedure Details: After induction of general anesthesia, patient's abdomen was prepped and draped in standard surgical fashion. A small supraumbilical incision was made and this incision was taken through the abdominal wall down to the fascia which was opened using electrocautery. Peritoneum was then bluntly divided gaining access to the intra-abdominal cavity. Interrupted 0 Vicryl sutures were placed through the fascial incision and using an open technique, Syed trocar was introduced and secured using the Vicryl sutures. Abdomen was insufflated to 15 mmHg and c amera was inserted. Visual examination of the intestine under the fascial incision appeared normal without injury. Under direct visualization, a 5 mm bladeless trocar was placed in the subxiphoid region and two additional 5 mm bladeless trocars were placed in the right upper quadrant all under direct visualization. Examination of the right upper quadrant revealed enlarged liver with numerous small lesions throughout the surface of the liver. The gallbladder also appeared very distended and edematous. Gallbladder was then grasped and retracted in a cephalad direction. Minimal dissection was performed to identify the infundibulum which was then grasped and retracted in a lateral direction. Careful blunt dissection was performed to identify the cystic duct that appeared normal in size. Cystic artery was located just next to the cystic duct as well. Both structures were clipped and divided using Endoclips without complication. Gallbladder was then removed from the liver bed using electrocautery. There was little bit more bleeding from the liver bed as expected. However there was no bile or stone spillage during the maneuver. Gallbladder was then removed from the abdominal cavity using an endo pouch bag and sent off the surgical field. Abdomen was then re-insufflated and hemostasis in the liver bed was achieved using electrocautery. Right upper quadrant was then well irrigated. Two of the liver lesions were biopsied laparoscopically and sent off to pathology. A 15 Niger[place] Blu drains were placed in the right upper quadrant and brought out through the 5 mm trocar site laterally and secured to the skin using 3-0 nylon sutures. Restless trocars were then removed under direct visualization as the abdomen was deflated. Additional interrupted 0 Vicryl sutures were placed through the supraumbilical fascial incision and the sutures were tied down closing off the supraumbilical fascia. Surgical sites were irrigated injected with 20 mL of 0.25% Marcaine with epinephrine. Skin incisions were closed using nanci. Surgical sites were cleaned and dried and dressings were applied. Sponge, needle, instrument count at the end of the case were reported to be correct by the nursing staff. The patient tolerated procedure well was awake, extubated and transferred to recovery in stable condition. Specimen: Gallbladder and two liver lesions Condition Stable Disposition Still a Patient SANDRO NELSON MD May 11, 2025 11:09
[2025-05-11] MEDS ORDERED: HYDROmorphone HCL 2 MG/ML VL/or syr IV PRN (11:15)
[2025-05-11] MEDS ORDERED: ACETAMINOPHEN IV 1000 MG/100ML (10MG/ML) IV PRN (11:15)
[2025-05-11] MEDS ORDERED: MEPERIDINE HCL (25 MG/ML) 1ML VIAL IV PRN (11:15)
[2025-05-11] MEDS: ONDANSETRON HCL 4 MG/2 ML VIAL IV ONE (11:49)
[2025-05-11] MEDS: POTASSIUM CHL 20MEQ/100ML 100 ML IV SCH (13:27)
--- NOTE | 2025-05-11 13:46 | DVHPNRES ---
Progress Note Date Seen: May 11, 2025 Resident Creating Document: GABINO LATIF RESIDENT Medical Necessity Reason Pt with a Central, PICC or Fol: No Subjective Review of Systems Patient is a 79-year-old with a past medical history of hypertension, CKD, cerebrovascular bleed (subarachnoid bleed x2), hypothyroidism, hyperlipidemia presented to the ER with a chief complaint of abdominal pain for about 6 days. Patient reported sudden onset upper abdominal pain across the right upper quadrant to the left upper quadrant on Monday last week following which she had 1 episode of vomiting which was large in amount and no blood was seen. Since that episode patient has had intermittent right upper quadrant abdominal pain, nonradiating, did not worsen on eating food, no postural variation, denied any further episodes of vomiting, reported decreased appetite. To do the right upper abdominal pain got worse following which she came to the hospital for further evaluation. She denied any fever, chills, diarrhea or constipation. Patient has a history of prolapsed bladder/rectum status post repair in 2009 and follows up with the Dr. Orozco and self caths twice in the day in the morning and in the evening before going to bed. Patient denies any a similar episode of abdominal pain previously. Past medical history: As per HPI Past surgical history: Hysterectomy, hernia repair, prolapsed bladder/rectum surgery Social history: Patient denies smoking, drinking alcohol but reports smoking 1 joint of marijuana every day but denies any other drug usage Home medications: Levothyroxine 88 mcg, valsartan 80 mg, nifedipine 30 mg, gabapentin 600 b.i.d., oxybutynin 5 mg 05/09 - Patient seen and examined at the bedside. Prelim blood culture showing Gram-negative rods, IV Zosyn started. 05/11 - patient seen and examined. Undergoing cholecystectomy. WBC, LFTs downtrending Objective vital signs Vital Sign Date Time Temp Pulse Resp B/P (MAP) Pulse Ox O2 Delivery O2 Flow Rate FiO2 05/11/25 12:10 72 13 118/65 (82) 97 05/11/25 11:56 Nasal Cannula 2.0 97 05/11/25 11:04 97.3 97.3 Total Intake and Output 05/10/25 05/10/25 05/11/25 15:00 23:00 07:00 Intake Total 100 ml 1000 ml Balance 100 ml 1000 ml medications Current Medications Medications Dose Ordered Sig/Katie Route Start Time Stop Time Status Last Admin Dose Admin Ondansetron HCl 4 mg Q6HPRN PRN IV 05/08/25 21:30 Pantoprazole Sodium 40 mg DAILY IV 05/09/25 12:00 05/10/25 10:20 40 MG Acetaminophen 650 mg Q6HP PRN PO 05/09/25 10:15 Nifedipine 30 mg DAILY PO 05/09/25 10:15 05/10/25 10:23 30 MG Piperacillin Sod/ Tazobactam Sod 100 ml @ 25 mls/hr Q8HR IV 05/09/25 22:00 05/11/25 05:04 25 MLS/HR Lactated Ringer's 1,000 ml @ 100 mls/hr Q10H IV 05/09/25 12:30 05/11/25 12:44 100 MLS/HR Levothyroxine Sodium 88 mcg DAILY PO 05/10/25 10:00 05/10/25 10:24 88 MCG Examination Patient lying in bed, in no acute distress General: Well-built, afebrile, mucosae are moist Cardiovascular: Regular S1 and S2. No murmurs, gallops or rubs. No JVD elevation. No pedal edema Respiratory: Normal B/L air entry on room air. Clear lung sounds on auscultation Abdomen: Soft, right upper quadrant tenderness, positive Bailey sign n ondistended, normoactive bowel sounds, no rebound tenderness, no organomegaly, no masses Genitourinary: Deferred MSK/skin: Mobilizes 4 limbs. Skin is dry and warm Neurological: No motor, no sensitive deficits, normal speech. Pupils are isocoric and reactive. Psych/Mental Status: A/Ox3 laboratory and microbiology Laboratory Tests 05/11/25 06:19 Test 05/11/25 06:19 Range/Units Serum Glucose 84 74-106 mg/dL Microbiology Date/Time Source Procedure Growth Status 05/08/25 21:47 Blood Blood Culture - Final Escherichia coli Klebsiella oxytoca Complete 05/08/25 17:06 Voided Urine Urine Culture - Final Complete Labs and/or images reviewed: Labs reviewed by me, Image(s) reviewed by me Problem List/Assessment/Plan Problem List/Assessment/Plan Sepsis secondary to Probable acute cholecystitis status post laparoscopic cholecystectomy 05/11 Liver lesions status post laparoscopic liver biopsy Acute abdominal pain Symptomatic Cholelithiasis Transaminitis with cholestatic pattern Rule out choledocholithiasis Possible early acute cholangitis ? Duodenal diverticulum - elevated total bilirubin with increased direct bilirubin - CT abdomen pelvis without contrast shows distended gallbladder - gallbladder ultrasound borderline gallbladder wall thickening with a cholelithiasis, common bile duct measures 0.7 cm - IV fluids as LR, IV Zosyn starting 05/09, previously receiving IV ceftriaxone and metronidazole - MRCP shows mildly dilated CBD. No filling defect or stricture identified in CBD. Distended gallbladder with mild debris. Possible small gallstones within gallbladder. 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 Degree of distal common bile duct compression by the duodenal diverticulum can not be excluded. - blood culture showing E coli and Klebsiella pansensitive - GI consult-recommended IV fluids, IV antibiotics - surgeon consulted -patient underwent laparoscopic surgery- Examination of the right upper quadrant revealed enlarged liver with numerous small lesions throughout the surface of the liver. The gallbladder also appeared very distended and edematous. Two of the liver lesions were biopsied laparoscopically and sent off to pathology. 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 daily Clear liquid diet PUD prophylaxis: Protonix DVT prophylaxis: SCDs, held because of h/o cv bleed Plan of care discussed with patient in which all questions have been answered Goals of care discussed for more than 30 minutes, full code status Plan discussed with Dr. Meneses Plan discussed with: Patient Dietary Evaluation Review Comments: 1) Encourage optimal PO intake 2) Advance to cardiac diet when medically feasible, pending ST approval 3) Collect HbA1C 4) Follow-up with gastroenterology, surgery, and nephrology 5) Continue to monitor I&O, labs, and skin integrity Expected Outcomes/Goals: 1) appetite and labs to improve 2) diet to advance 3) f/u in 3-5 days Date of Service: May 11, 2025 Billing Provider: PATRICIA MENESES MD Common Visit Codes: [id number] INP/OBS CARE(HIGH) GABINO LATIF RESIDENT May 11, 2025 13:46 PATRICIA MENESES MD May 13, 2025 21:02
[2025-05-11] MEDS: POTASSIUM EFFERVESENT TAB 25 MEQ PO ONE (14:28)
--- NOTE | 2025-05-11 16:35 | DVHPN2 ---
Progress Note - Dictate Date Seen: May 11, 2025 Medical Necessity Reason Pt with a Central, PICC or Fol: No Subjective No new complaints Liver enzymes were trending down Patient is S/P laparoscopic cholecystectomy today and biopsy of liver lesions vital signs Vital Sign Date Time Temp Pulse Resp B/P (MAP) Pulse Ox O2 Delivery O2 Flow Rate FiO2 05/11/25 13:00 97.8 54 18 119/59 (79) 97 97.8 05/11/25 11:56 Nasal Cannula 2.0 97 Total Intake and Output 05/10/25 05/10/25 05/11/25 15:00 23:00 07:00 Intake Total 100 ml 1000 ml Balance 100 ml 1000 ml medications Current Medications Medications Dose Ordered Sig/Katie Route Start Time Stop Time Status Last Admin Dose Admin Ondansetron HCl 4 mg Q6HPRN PRN IV 05/08/25 21:30 Pantoprazole Sodium 40 mg DAILY IV 05/09/25 12:00 05/11/25 14:28 40 MG Acetaminophen 650 mg Q6HP PRN PO 05/09/25 10:15 Nifedipine 30 mg DAILY PO 05/09/25 10:15 05/10/25 10:23 30 MG Piperacillin Sod/ Tazobactam Sod 100 ml @ 25 mls/hr Q8HR IV 05/09/25 22:00 05/11/25 14:28 25 MLS/HR Lactated Ringer's 1,000 ml @ 100 mls/hr Q10H IV 05/09/25 12:30 05/11/25 12:44 100 MLS/HR Levothyroxine Sodium 88 mcg DAILY PO 05/10/25 10:00 05/11/25 14:28 88 MCG objective General: Well-built, afebrile, mucosae are moist Cardiovascular: Regular S1 and S2. No murmurs, gallops or rubs. No JVD elevation. No pedal edema Respiratory: Normal B/L air entry on room air. Clear lung sounds on auscultation Abdomen: Soft, post op dressing normoactive bowel sounds, no rebound tenderness, no organomegaly, no masses MSK/skin: Mobilizes 4 limbs. Skin is dry and warm Neurological: No motor, no sensitive deficits, normal speech. Pupils are isocoric and reactive. Psych/Mental Status: A/Ox3 laboratory and microbiology Laboratory Tests 05/11/25 06:19 Test 05/11/25 06:19 Range/Units Serum Glucose 84 74-106 mg/dL Problems(with codes): (1) Duodenal diverticulum (2) Gram negative sepsis (3) Urinary tract infection (4) Cholelithiasis with acute cholecystitis (5) Acute cholecystitis (6) Intractable abdominal pain (7) Hyperbilirubinemia Prognosis Plan Continue IV fluid hydration IV antibiotics Pain control Clear liquid diet Monitor labs Await biopsy results Dietary Evaluation Review Comments: 1) Encourage optimal PO intake 2) Advance to cardiac diet when medically feasible, pending ST approval 3) Collect HbA1C 4) Follow-up with gastroenterology, surgery, and nephrology 5) Continue to monitor I&O, labs, and skin integrity Expected Outcomes/Goals: 1) appetite and labs to improve 2) diet to advance 3) f/u in 3-5 days Plan discussed with: Other (None) RIMA BIRD MD May 11, 2025 16:35
[2025-05-11] MEDS: ACETAMINOPHEN 325 MG TAB PO PRN (17:38)
[2025-05-12] VITALS (7 sets, daily range): BP systolic 111–144; BP diastolic 53–78; PULSE 61–85; RESP 16–20; TEMP 97.6–99.3; O2SAT 94–98
[2025-05-12 07:23] LABS: Basophils # (auto) 0 10 ^3/uL (0-0.2); Basophils % (auto) 0.1 % (0.0-2.0); Eosinophils # (auto) 0 10 ^3/uL (0-0.8); Hematocrit 37.7 % (36.0-46.0); Hemoglobin 13.2 g/dL (12.2-16.2); Lymphocytes # (auto) 1.5 10 ^3/uL (0.4-5.4); Lymphocytes % (auto) 13.9 % (10.0-50.0); Mean Corpuscular Hemoglobin 31.2 pg (28.0-32.0); Mean Corpuscular Hgb Conc. 35.1 g/dL (32.0-36.0); Mean Corpuscular Volume 89.1 fL (80.0-100.0); Monocytes # (auto) 0.8 10 ^3/uL (0-1.3); Monocytes % (auto) 7.8 % (0.0-12.0); Neutrophils # (auto) 8.4 10 ^3/uL (1.6-8.6); Neutrophils % (auto) 78.2 % (37.0-80.0); Nucleated Red Blood Cells % 0.1 %; Platelet Count (auto) 284 10^3/uL (140-450); Red Blood Cells 4.23 10^6/uL (4.0-5.20); Red Cell Distribution Width 14.4 % (11.8-14.3); White Blood Cell 10.8 10^3/uL (4.4-10.8)
[2025-05-12 08:17] LABS: Albumin 3.9 g/dL (3.2-4.8); Anion Gap 12 (5-15); BUN/Creatinine Ratio 20.3 (10.0-20.0); Blood Urea Nitrogen 14 mg/dL (9-23); Calcium 9.7 mg/dL (8.7-10.4); Carbon Dioxide 22 mmol/L (20-31); Chloride 107 mmol/L (98-107); Glucose 97 mg/dL (74-106); Sodium 141 mmol/L (136-145); Total Protein 6.2 g/dL (5.7-8.2)
[2025-05-12 08:18] LABS: Bilirubin, Total 0.7 mg/dL (0.2-1.0)
[2025-05-12 08:21] LABS: Alanine Aminotransferase 59 U/L (7-40); Alkaline Phosphatase 269 U/L (46-116); Aspartate Aminotransferase 44 U/L (<34)
[2025-05-12 11:13] LABS: Hepatitis A Ab IgM Negative; Hepatitis B Core IgM Negative (Negative); Hepatitis B Surface Antigen Negative (Negative); Hepatitis C Antibody Negative (Negative)
--- NOTE | 2025-05-12 12:16 | DVHPN2 ---
Progress Note - Dictate Date Seen: May 12, 2025 Medical Necessity Reason Pt with a Central, PICC or Fol: No Subjective E: no major events o/n. feels about the same as yesterday. antoinette clear liquid diet. vital signs Vital Sign Date Time Temp Pulse Resp B/P (MAP) Pulse Ox O2 Delivery O2 Flow Rate FiO2 05/12/25 10:14 120/71 05/12/25 09:00 97.7 61 20 97 97.7 05/12/25 08:10 Room Air* 0 21 Total Intake and Output 05/11/25 05/11/25 05/12/25 15:00 23:00 07:00 Intake Total 100 ml 100 ml Output Total 20 ml 10 ml Balance 80 ml 90 ml medications Current Medications Medications Dose Ordered Sig/Katie Route Start Time Stop Time Status Last Admin Dose Admin Ondansetron HCl 4 mg Q6HPRN PRN IV 05/08/25 21:30 Pantoprazole Sodium 40 mg DAILY IV 05/09/25 12:00 05/12/25 10:14 40 MG Acetaminophen 650 mg Q6HP PRN PO 05/09/25 10:15 05/11/25 17:38 650 MG Nifedipine 30 mg DAILY PO 05/09/25 10:15 05/12/25 10:14 30 MG Piperacillin Sod/ Tazobactam Sod 100 ml @ 25 mls/hr Q8HR IV 05/09/25 22:00 05/12/25 05:17 25 MLS/HR Lactated Ringer's 1,000 ml @ 100 mls/hr Q10H IV 05/09/25 12:30 05/12/25 10:15 100 MLS/HR Levothyroxine Sodium 88 mcg DAILY PO 05/10/25 10:00 05/12/25 10:13 88 MCG objective GEN: NAD ABD: surgical dressings clean and dry. KAITLYNN 30 mL serosang. laboratory and microbiology Laboratory Tests 05/12/25 05:48 Test 05/12/25 05:48 Range/Units Serum Glucose 97 74-106 mg/dL Assessment/Plan A: 1. s/p lap cholecystectomy and liver bx POD #1 improving. P: 1. advance diet slowly 2. DC plan per hospitalist. 3. remove all bandages tomorrow. ok to shower and get incisions/drain wet tomorrow. Dietary Evaluation Review Comments: 1) Encourage optimal PO intake 2) Advance to cardiac diet when medically feasible, pending ST approval 3) Collect HbA1C 4) Follow-up with gastroenterology, surgery, and nephrology 5) Continue to monitor I&O, labs, and skin integrity Expected Outcomes/Goals: 1) appetite and labs to improve 2) diet to advance 3) f/u in 3-5 days Plan discussed with: Patient, Daughter SANDRO CHACON MD May 12, 2025 12:16
[2025-05-12] MEDS: LACTATED RINGER'S 1,000 ML IV SCH (12:23)
--- NOTE | 2025-05-12 16:26 | DVHPNRES ---
Progress Note Date Seen: May 12, 2025 Resident Creating Document: GABINO LATIF RESIDENT Medical Necessity Reason Pt with a Central, PICC or Fol: No Subjective Review of Systems Patient is a 79-year-old with a past medical history of hypertension, CKD, cerebrovascular bleed (subarachnoid bleed x2), hypothyroidism, hyperlipidemia presented to the ER with a chief complaint of abdominal pain for about 6 days. Patient reported sudden onset upper abdominal pain across the right upper quadrant to the left upper quadrant on Monday last week following which she had 1 episode of vomiting which was large in amount and no blood was seen. Since that episode patient has had intermittent right upper quadrant abdominal pain, nonradiating, did not worsen on eating food, no postural variation, denied any further episodes of vomiting, reported decreased appetite. To do the right upper abdominal pain got worse following which she came to the hospital for further evaluation. She denied any fever, chills, diarrhea or constipation. Patient has a history of prolapsed bladder/rectum status post repair in 2009 and follows up with the Dr. Orozco and self caths twice in the day in the morning and in the evening before going to bed. Patient denies any a similar episode of abdominal pain previously. Past medical history: As per HPI Past surgical history: Hysterectomy, hernia repair, prolapsed bladder/rectum surgery Social history: Patient denies smoking, drinking alcohol but reports smoking 1 joint of marijuana every day but denies any other drug usage Home medications: Levothyroxine 88 mcg, valsartan 80 mg, nifedipine 30 mg, gabapentin 600 b.i.d., oxybutynin 5 mg 05/09 - Patient seen and examined at the bedside. Prelim blood culture showing Gram-negative rods, IV Zosyn started. 05/11 - patient seen and examined. Undergoing cholecystectomy. WBC, LFTs downtrending 05/12-patient seen and examined. Postoperative day 1. PT eval, tolerating clear liquid diet. Advanced to full liquid. Objective vital signs Vital Sign Date Time Temp Pulse Resp B/P (MAP) Pulse Ox O2 Delivery O2 Flow Rate FiO2 05/12/25 13:30 97.6 62 17 139/78 (98) 98 97.6 05/12/25 08:10 Room Air* 0 21 Total Intake and Output 05/11/25 05/11/25 05/12/25 15:00 23:00 07:00 Intake Total 100 ml 100 ml Output Total 20 ml 10 ml Balance 80 ml 90 ml medications Current Medications Medications Dose Ordered Sig/Katie Route Start Time Stop Time Status Last Admin Dose Admin Ondansetron HCl 4 mg Q6HPRN PRN IV 05/08/25 21:30 Pantoprazole Sodium 40 mg DAILY IV 05/09/25 12:00 05/12/25 10:14 40 MG Acetaminophen 650 mg Q6HP PRN PO 05/09/25 10:15 05/11/25 17:38 650 MG Nifedipine 30 mg DAILY PO 05/09/25 10:15 05/12/25 10:14 30 MG Piperacillin Sod/ Tazobactam Sod 100 ml @ 25 mls/hr Q8HR IV 05/09/25 22:00 05/12/25 15:10 25 MLS/HR Lactated Ringer's 1,000 ml @ 50 mls/hr Q20H IV 05/12/25 12:15 05/12/25 12:23 50 MLS/HR Levothyroxine Sodium 88 mcg DAILY PO 05/13/25 06:00 Examination Patient lying in bed, in no acute distress General: Well-built, afebrile, mucosae are moist Cardiovascular: Regular S1 and S2. No murmurs, gallops or rubs. No JVD elevation. No pedal edema Respiratory: Normal B/L air entry on room air. Clear lung sounds on auscultation Abdomen: Soft, right upper quadrant tenderness, positive Bailey sign n ondistended, normoactive bowel sounds, no rebound tenderness, no organomegaly, no masses. Dressing dry clean and intact. Genitourinary: Deferred MSK/skin: Mobilizes 4 limbs. Skin is dry and warm Neurological: No motor, no sensitive deficits, normal speech. Pupils are isocoric and reactive. Psych/Mental Status: A/Ox3 laboratory and microbiology Laboratory Tests 05/12/25 05:48 Test 05/12/25 05:48 Range/Units Serum Glucose 97 74-106 mg/dL Microbiology Date/Time Source Procedure Growth Status 05/08/25 21:47 Blood Blood Culture - Final Escherichia coli Klebsiella oxytoca Complete 05/08/25 17:06 Voided Urine Urine Culture - Final Complete Labs and/or images reviewed: Labs reviewed by me, Image(s) reviewed by me Problem List/Assessment/Plan Problem List/Assessment/Plan Sepsis secondary to Probable acute cholecystitis status post laparoscopic cholecystectomy 05/11 Liver lesions status post laparoscopic liver biopsy Acute abdominal pain Symptomatic Cholelithiasis Transaminitis with cholestatic pattern Rule out choledocholithiasis Possible early acute cholangitis ? Duodenal diverticulum - elevated total bilirubin with increased direct bilirubin - CT abdomen pelvis without contrast shows distended gallbladder - gallbladder ultrasound borderline gallbladder wall thickening with a cholelithiasis, common bile duct measures 0.7 cm - IV fluids as LR, IV Zosyn starting 05/09, previously receiving IV ceftriaxone and metronidazole - MRCP shows mildly dilated CBD. No filling defect or stricture identified in CBD. Distended gallbladder with mild debris. Possible small gallstones within gallbladder. 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 Degree of distal common bile duct compression by the duodenal diverticulum can not be excluded. - blood culture showing E coli and Klebsiella pansensitive - GI consult-recommended IV fluids, IV antibiotics - surgeon consulted -patient underwent laparoscopic surgery- Examination of the right upper quadrant revealed enlarged liver with numerous small lesions throughout the surface of the liver. The gallbladder also appeared very distended and edematous. Two of the liver lesions were biopsied laparoscopically and sent off to pathology. - negative hepatitis panel - surgeon: advance diet slowly. DC plan per hospitalist. 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 daily Full Liquid diet PT eval PUD prophylaxis: Protonix DVT prophylaxis: SCDs, held because of h/o cv bleed Plan of care discussed with patient in which all questions have been answered Goals of care discussed for more than 30 minutes, full code status Plan discussed with Dr. Mcdermott Plan discussed with: Patient My Orders My Orders Orders - GABINO LATIF RESIDENT Procedure Category Date Status Time Electrocardigram EKG 05/12/25 Logged 09:32 Electrocardigram EKG 05/12/25 Logged 09:32 Pt Request For Service PT 05/12/25 Logged 10:22 Oob To Chair JESIKA 05/12/25 In Process 10:22 Assist With Feeding [facility] [employer] [facility] 05/12/25 In Process As Needed 10:22 Levothyroxine Tablet PHA 05/13/25 In Process (Synthroid Tablet) 06:00 Dietary Evaluation Review Comments: 1) Encourage optimal PO intake 2) Advance to cardiac diet when medically feasible, pending ST approval 3) Collect HbA1C 4) Follow-up with gastroenterology, surgery, and nephrology 5) Continue to monitor I&O, labs, and skin integrity Expected Outcomes/Goals: 1) appetite and labs to improve 2) diet to advance 3) f/u in 3-5 days Date of Service: May 12, 2025 Billing Provider: TAMRA CAMEJO MD Common Visit Codes: [id number] INP/OBS CARE(HIGH) GABINO LATIF RESIDENT May 12, 2025 16:26 TAMRA CAMEJO MD May 19, 2025 10:15
--- NOTE | 2025-05-12 19:59 | DVHPN2 ---
Progress Note - Dictate Date Seen: May 12, 2025 Medical Necessity Reason Pt with a Central, PICC or Fol: No Subjective No new complaints ;tolerating clear liquid diet Liver enzymes were trending down Patient is Post Op # 1 S/P laparoscopic cholecystectomy today and biopsy of liver lesions vital signs Vital Sign Date Time Temp Pulse Resp B/P (MAP) Pulse Ox O2 Delivery O2 Flow Rate FiO2 05/12/25 16:41 97.9 65 19 122/70 (87) 95 97.9 05/12/25 08:10 Room Air* 0 21 Total Intake and Output 05/11/25 05/11/25 05/12/25 14:59 22:59 06:59 Intake Total 100 ml 100 ml Output Total 20 ml 10 ml Balance 80 ml 90 ml medications Current Medications Medications Dose Ordered Sig/Katie Route Start Time Stop Time Status Last Admin Dose Admin Ondansetron HCl 4 mg Q6HPRN PRN IV 05/08/25 21:30 Pantoprazole Sodium 40 mg DAILY IV 05/09/25 12:00 05/12/25 10:14 40 MG Acetaminophen 650 mg Q6HP PRN PO 05/09/25 10:15 05/11/25 17:38 650 MG Nifedipine 30 mg DAILY PO 05/09/25 10:15 05/12/25 10:14 30 MG Piperacillin Sod/ Tazobactam Sod 100 ml @ 25 mls/hr Q8HR IV 05/09/25 22:00 05/12/25 15:10 25 MLS/HR Lactated Ringer's 1,000 ml @ 50 mls/hr Q20H IV 05/12/25 12:15 05/12/25 12:23 50 MLS/HR Levothyroxine Sodium 88 mcg DAILY PO 05/13/25 06:00 objective General: Well-built, afebrile, mucosae are moist Cardiovascular: Regular S1 and S2. No murmurs, gallops or rubs. No JVD elevation. No pedal edema Respiratory: Normal B/L air entry on room air. Clear lung sounds on auscultation Abdomen: Soft, post op dressing normoactive bowel sounds, no rebound tenderness, no organomegaly, no masses MSK/skin: Mobilizes 4 limbs. Skin is dry and warm Neurological: No motor, no sensitive deficits, normal speech. Pupils are isocoric and reactive. Psych/Mental Status: A/Ox3 laboratory and microbiology Laboratory Tests 05/12/25 05:48 Test 05/12/25 05:48 Range/Units Serum Glucose 97 74-106 mg/dL Problems(with codes): (1) Duodenal diverticulum (2) Gram negative sepsis (3) Urinary tract infection (4) Cholelithiasis with acute cholecystitis (5) Acute cholecystitis Prognosis PLAN Advance to full liquid diet Monitor labs PPI; pain control Dietary Evaluation Review Comments: 1) Encourage optimal PO intake 2) Advance to cardiac diet when medically feasible, pending ST approval 3) Collect HbA1C 4) Follow-up with gastroenterology, surgery, and nephrology 5) Continue to monitor I&O, labs, and skin integrity Expected Outcomes/Goals: 1) appetite and labs to improve 2) diet to advance 3) f/u in 3-5 days Plan discussed with: Other (None) RIMA BIRD MD May 12, 2025 19:59
[2025-05-13 01:00] VITALS: BP 133/50; PULSE 74; RESP 16; TEMP 97.6; O2SAT 94
[2025-05-13 05:00] VITALS: BP 132/68; PULSE 61; RESP 17; TEMP 97.9; O2SAT 92
[2025-05-13] MEDS: LEVOTHYROXINE SODIUM 88 MCG TAB PO SCH (06:07)
--- NOTE | 2025-05-13 07:27 | ECG ---
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
--- NOTE | 2025-05-13 07:27 | ECG ---
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
[2025-05-13 07:40] LABS: Basophils # (auto) 0.1 10 ^3/uL (0-0.2); Eosinophils # (auto) 0.2 10 ^3/uL (0-0.8); Eosinophils % (auto) 1.2 % (0.0-7.0); Hemoglobin 13.3 g/dL (12.2-16.2); Lymphocytes # (auto) 3.4 10 ^3/uL (0.4-5.4); Mean Corpuscular Hemoglobin 30.8 pg (28.0-32.0); Mean Corpuscular Volume 90.5 fL (80.0-100.0); Monocytes # (auto) 1.3 10 ^3/uL (0-1.3); Monocytes % (auto) 9.1 % (0.0-12.0); Neutrophils # (auto) 9.7 10 ^3/uL (1.6-8.6); Neutrophils % (auto) 65.7 % (37.0-80.0); Nucleated Red Blood Cells % 0.5 %; Platelet Count (auto) 329 10^3/uL (140-450); Red Blood Cells 4.31 10^6/uL (4.0-5.20); Red Cell Distribution Width 14.2 % (11.8-14.3); White Blood Cell 14.7 10^3/uL (4.4-10.8)
[2025-05-13 07:45] LABS: Albumin 3.8 g/dL (3.2-4.8); Anion Gap 10 (5-15); BUN/Creatinine Ratio 13.3 (10.0-20.0); Blood Urea Nitrogen 10 mg/dL (9-23); Calcium 9.6 mg/dL (8.7-10.4); Carbon Dioxide 25 mmol/L (20-31); Glucose 90 mg/dL (74-106); Potassium 3.5 mmol/L (3.5-5.1); Sodium 143 mmol/L (136-145); Total Protein 6.1 g/dL (5.7-8.2)
[2025-05-13 07:46] LABS: Alanine Aminotransferase 75 U/L (7-40); Alkaline Phosphatase 250 U/L (46-116); Aspartate Aminotransferase 73 U/L (<34); Bilirubin, Total 0.8 mg/dL (0.2-1.0); Chloride 108 mmol/L (98-107)
[2025-05-13 08:12] LABS: Platelet Estimate Adequate
[2025-05-13 08:13] LABS: Large Platelets FEW
[2025-05-13 09:00] VITALS: BP 104/62; PULSE 64; RESP 15; TEMP 98.2; O2SAT 93
--- NOTE | 2025-05-13 09:49 | DVHPN2 ---
Progress Note - Dictate Date Seen: May 13, 2025 Medical Necessity Reason Pt with a Central, PICC or Fol: No Subjective E: no major events o/n. feels about the same as yesterday. antoinette clear liquid diet. vital signs Vital Sign Date Time Temp Pulse Resp B/P (MAP) Pulse Ox O2 Delivery O2 Flow Rate FiO2 05/13/25 05:00 97.9 61 17 132/68 (89) 92 97.9 05/12/25 20:00 Room Air* 0 21 Total Intake and Output 05/12/25 05/12/25 05/13/25 15:00 23:00 07:00 Intake Total 300 ml 600 ml 100 ml Balance 300 ml 600 ml 100 ml medications Current Medications Medications Dose Ordered Sig/Katie Route Start Time Stop Time Status Last Admin Dose Admin Ondansetron HCl 4 mg Q6HPRN PRN IV 05/08/25 21:30 Pantoprazole Sodium 40 mg DAILY IV 05/09/25 12:00 05/12/25 10:14 40 MG Acetaminophen 650 mg Q6HP PRN PO 05/09/25 10:15 05/12/25 21:42 650 MG Nifedipine 30 mg DAILY PO 05/09/25 10:15 05/12/25 10:14 30 MG Piperacillin Sod/ Tazobactam Sod 100 ml @ 25 mls/hr Q8HR IV 05/09/25 22:00 05/13/25 06:08 25 MLS/HR Lactated Ringer's 1,000 ml @ 50 mls/hr Q20H IV 05/12/25 12:15 05/12/25 12:23 50 MLS/HR Levothyroxine Sodium 88 mcg QAM PO 05/14/25 06:00 objective GEN: NAD ABD: surgical incisions clean and dry. KAITLYNN 50 mL serosang. laboratory and microbiology Laboratory Tests 05/13/25 06:50 Test 05/13/25 06:50 Range/Units Serum Glucose 90 74-106 mg/dL Assessment/Plan A: 1. s/p lap cholecystectomy and liver bx POD #2 improving. P: 1. recheck WBC this afternoon. if trending down ok to DC home from surgery POV. 2. f/u in clinic this Mon. cooper [id number] for appt Dietary Evaluation Review Comments: 1) Encourage optimal PO intake 2) Advance to cardiac diet when medically feasible, pending ST approval 3) Collect HbA1C 4) Follow-up with gastroenterology, surgery, and nephrology 5) Continue to monitor I&O, labs, and skin integrity Expected Outcomes/Goals: 1) appetite and labs to improve 2) diet to advance 3) f/u in 3-5 days Plan discussed with: Patient SANDRO CHACON MD May 13, 2025 09:49
[2025-05-13] MEDS: SODIUM CHLORIDE 0.9% 1,000 ML IV SCH (10:59)
[2025-05-13] MEDS: cefTRIAXone 1GM/50ML D5W 50 ML IV ONE (10:59)
[2025-05-13] MEDS: metroNIDAZOLE 500MG/100ML 100 ML IV SCH (11:00)
--- NOTE | 2025-05-13 12:36 | ECG ---
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
[2025-05-13 13:00] VITALS: BP 117/69; PULSE 60; RESP 15; TEMP 98.7; O2SAT 94
[2025-05-13 14:53] LABS: Basophils # (auto) 0.1 10 ^3/uL (0-0.2); Basophils % (auto) 0.5 % (0.0-2.0); Eosinophils # (auto) 0.1 10 ^3/uL (0-0.8); Eosinophils % (auto) 0.4 % (0.0-7.0); Hematocrit 37.9 % (36.0-46.0); Hemoglobin 13.1 g/dL (12.2-16.2); Lymphocytes # (auto) 2.4 10 ^3/uL (0.4-5.4); Lymphocytes % (auto) 18.6 % (10.0-50.0); Mean Corpuscular Hgb Conc. 34.6 g/dL (32.0-36.0); Mean Corpuscular Volume 89.6 fL (80.0-100.0); Monocytes % (auto) 7.5 % (0.0-12.0); Neutrophils # (auto) 9.6 10 ^3/uL (1.6-8.6); Platelet Count (auto) 324 10^3/uL (140-450); Red Blood Cells 4.22 10^6/uL (4.0-5.20); White Blood Cell 13.1 10^3/uL (4.4-10.8)
[2025-05-13] MEDS ORDERED: CIPR500T4 PO (16:38)
[2025-05-13] MEDS ORDERED: METR-344 PO (16:38)
--- NOTE | 2025-05-13 16:45 | DVHDSRES ---
Discharge Summary Date of Admission Resident Creating Document: GABINO LATIF RESIDENT May 08, 2025 at 21:23 Date of Discharge: May 13, 2025 Labs/Diagnostic Data: Laboratory Results Test 05/13/25 14:11 05/13/25 06:50 05/10/25 05:37 05/09/25 05:13 White Blood Count 13.1 10^3/uL (4.4-10.8) Red Blood Count 4.22 10^6/uL (4.0-5.20) Hemoglobin 13.1 g/dL (12.2-16.2) Hematocrit 37.9 % (36.0-46.0) Mean Corpuscular Volume 89.6 fL (80.0-100.0) Mean Corpuscular Hemoglobin 31.0 pg (28.0-32.0) Mean Corpuscular Hemoglobin Concent 34.6 g/dL (32.0-36.0) Red Cell Distribution Width 14.0 % (11.8-14.3) Platelet Count 324 10^3/uL (140-450) Mean Platelet Volume 6.7 fL (6.9-10.8) Neutrophils (%) (Auto) 73.0 % (37.0-80.0) Lymphocytes (%) (Auto) 18.6 % (10.0-50.0) Monocytes (%) (Auto) 7.5 % (0.0-12.0) Eosinophils (%) (Auto) 0.4 % (0.0-7.0) Basophils (%) (Auto) 0.5 % (0.0-2.0) Neutrophils # (Auto) 9.6 10 ^3/uL (1.6-8.6) Lymphocytes # (Auto) 2.4 10 ^3/uL (0.4-5.4) Monocytes # (Auto) 1.0 10 ^3/uL (0-1.3) Eosinophils # (Auto) 0.1 10 ^3/uL (0-0.8) Basophils # (Auto) 0.1 10 ^3/uL (0-0.2) Nucleated Red Blood Cells 0.0 % Platelet Estimate Adequate Clumped Platelets Few Large Platelets Few Sodium Level 143 mmol/L (136-145) Potassium Level 3.5 mmol/L (3.5-5.1) Chloride Level 108 mmol/L (98-107) Carbon Dioxide Level 25 mmol/L (20-31) Anion Gap 10 (5-15) Blood Urea Nitrogen 10 mg/dL (9-23) Creatinine 0.75 mg/dL (0.550-1.02) Glomerular Filtration Rate Calc 81 mL/min (>90) BUN/Creatinine Ratio 13.3 (10.0-20.0) Serum Glucose 90 mg/dL (74-106) Calcium Level 9.6 mg/dL (8.7-10.4) Total Bilirubin 0.8 mg/dL (0.2-1.0) Aspartate Amino Transferase (AST) 73 U/L (<34) Alanine Aminotransferase (ALT) 75 U/L (7-40) Alkaline Phosphatase 250 U/L (46-116) Total Protein 6.1 g/dL (5.7-8.2) Albumin 3.8 g/dL (3.2-4.8) Hepatitis A IgM Antibody Negative Hepatitis B Surface Antigen Negative (Negative) Hepatitis B Core IgM Antibody Negative (Negative) Hepatitis C Antibody Negative (Negative) Prothrombin Time 12.4 sec (9.3-11.8) Prothrombin Time INR 1.19 (0.9-1.15) Activated Partial Thromboplast Time 32.5 SEC (24.5-34.5) Test 05/09/25 01:59 05/08/25 17:06 05/08/25 14:20 05/08/25 13:14 Magnesium Level 2.0 mg/dL (1.6-2.6) Direct Bilirubin 2.6 mg/dL (<0.3) Vitamin B12 Level 891 pg/mL (211-911) Vitamin D 25-Hydroxy 62.6 ng/mL (30.0-100) Thyroid Stimulating Hormone (TSH) 0.52 uIU/mL (0.55-4.78) Urine Color Yellow (Yellow) Urine Clarity Clear (Clear) Urine pH 6.0 (5.0-9.0) Urine Specific [place] 1.008 (1.001-1.035) Urine Protein Negative (Negative) Urine Ketones Negative (Negative) Urine Blood 2+ /uL (Negative) Urine Nitrite Negative (Negative) Urine Bilirubin Negative (Negative) Urine Urobilinogen Normal mg/dL (Negative) Urine Leukocyte Esterase 3+ /uL (Negative) Urine RBC 4 /hpf (0 - 4) Urine Microscopic WBC 20 /HPF (0-5) Urine Squamous Epithelial Cells Few /hpf (<5) Urine Bacteria Many /hpf (None Seen) Urine Glucose Normal mg/dL (Normal) Lipase 31 U/L (12-53) POC Glucose 145 mg/dl (70-106) Other Laboratory Tests 05/13/25 14:11 05/13/25 06:50 Brief Hx & Hospital Course: Patient is a 79-year-old with a past medical history of hypertension, CKD, cerebrovascular bleed (subarachnoid bleed x2), hypothyroidism, hyperlipidemia presented to the ER with a chief complaint of abdominal pain for about 6 days. Patient reported sudden onset upper abdominal pain across the right upper quadrant to the left upper quadrant on Monday last week following which she had 1 episode of vomiting which was large in amount and no blood was seen. Since that episode patient has had intermittent right upper quadrant abdominal pain, nonradiating, did not worsen on eating food, no postural variation, denied any further episodes of vomiting, reported decreased appetite. To do the right upper abdominal pain got worse following which she came to the hospital for further evaluation. She denied any fever, chills, diarrhea or constipation. Patient has a history of prolapsed bladder/rectum status post repair in 2009 and follows up with the Dr. Orozco and self caths twice in the day in the morning and in the evening before going to bed. Patient denies any a similar episode of abdominal pain previously. Past medical history: As per HPI Past surgical history: Hysterectomy, hernia repair, prolapsed bladder/rectum surgery Social history: Patient denies smoking, drinking alcohol but reports smoking 1 joint of marijuana every day but denies any other drug usage Home medications: Levothyroxine 88 mcg, valsartan 80 mg, nifedipine 30 mg, gabapentin 600 b.i.d., oxybutynin 5 mg During the hospitalization, patient was started on IV ceftriaxone and metronidazole, diagnosed with acute cholecystitis. Blood culture growing Gram- negative rods, antibiotic was switched to IV Zosyn, IV lactated ringer. CT abdomen without pelvis showed distended gallbladder, GB U/S showed borderline gallbladder wall thickening with cholelithiasis, CBD 0.7 cm. MRCPshows mildly dilated CBD. No filling defect or stricture identified in CBD. Distended gallbladder with mild debris. Possible small gallstones within gallbladder. 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 Degree of distal common bile duct compression by the duodenal diverticulum can not be excluded. GI was consulted-recommended IV fluids, IV antibiotics. Surgeon was consulted. Bilirubin started to trend down, LFTs trended down, surgeon recommended cholecystectomy which was performed 05/11, patient also had liver lesions which were sent for biopsy. Final blood culture showed E coli and Klebsiella pansensitive, IV Zosyn was deescalated to IV ceftriaxone and metronidazole. Hepatitis panel was negative. Diet was advanced from clear liquid to soft diet. Physical therapy helped with ambulation of the patient, Riggs catheter was discontinued, patient was kept on home medications during the hospital stay. Lovenox was not given as DVT prophylaxis given the history of intracranial bleed. UA showed UTI, patient was kept on antibiotic which resolved her symptoms Discharge plan: Follow up with surgeon as outpatient within 7 days Follow up with primary care physician within 7 days Follow up with the discharge clinic appointment within 7 days Continue ciprofloxacin 500 mg twice daily for next 5 days Continue metronidazole thrice daily for next 5 days Patient agreed to discharge planning. Medication adverse effects explained, patient verbalized understanding. Consults/Reason for consult Surgeon consulted for acute cholecystitis GI consulted to rule out cholangitis Operations or Procedures PATIENT: ISSAC VAIL ACCT: [id number] UNIT: [id number] : 1945 LOC: CENTRAL ROOM / BED: [facility] / A AGE / SEX: 79 / F ADM STATUS: ADM IN SERVICE [id number] ORDERING PHYSICIAN: ÁNGEL ELLIS RESIDENT PROCEDURE(s): MRCP - MRCP MRI REASON: r/o choledocolithiasis ORDER NUMBER(s): [id number], ACCESSION NUMBER(s): [id number] CLINICAL INFORMATION: Rule out choledocholithiasis. Indication for recent ultrasound and CT was abdominal pain. TECHNIQUE: Multisequence multiplanar MRI images of the abdomen were obtained without IV contrast. Heavily T2-weighted MRCP images were obtained. 3D MRCP images were created. COMPARISON: Ultrasound and CT dated 05/08/2025. FINDINGS: There is debris within the gallbladder, possible small gallstones. Gallbladder is distended, similar to recent exams. Common bile duct measures up to 8 mm in diameter, mildly dilated. No filling defect or stricture identified in the common bile duct on MRCP. Prominent duodenal diverticulum noted adjacent to the pancreatic head and common bile duct. The liver, spleen, pancreas, and adrenal glands are unremarkable. There is no hydronephrosis in either kidney. Small T2 hyperintense foci in the kidneys bilaterally possible small cysts, but not well characterized on noncontrast enhanced MRI. No abdominal aortic aneurysm. No other significant findings are seen in the abdomen. IMPRESSION: 1. Mildly dilated common bile duct. No filling defect or stricture identified in the common bile duct on MRCP. 2. Distended gallbladder with mild debris, possibly small gallstones within the gallbladder, correlating with the findings on ultrasound. 3. Prominent duodenal diverticulum adjacent to the common bile duct and pancreatic head. A degree of compression of the distal common bile duct by the duodenal diverticulum can not be excluded. Correlate with clinical findings. 4. Additional findings as described above. ATED BY: KORY MACHADO DO DICTATED DATE/TIME: 05/09/25 112 SIGNED BY: KORY MACHADO DO SIGNED DATE/TIME: 05/09/25 1124 CC: EXAM: US GALLBLADDER CLINICAL HISTORY: pain TECHNIQUE: Grayscale and limited color flow doppler ultrasound of the right upper quadrant is performed. COMPARISON: None Findings: Liver measures 15.6 cm in length with heterogeneous echotexture and contour. No evidence of focal hepatic lesions or intra- or extrahepatic ductal dilatation. Common bile duct measures 0.7 cm in diameter. Normal hepatopedal flow noted within the portal vein. No perihepatic free fluid is noted. Gallbladder appears within normal limits with gallbladder wall thickness measuring 0.3 cm. There is shadowing calculi and biliary sludge. No evidence of pericholecystic fluid. Negative sonographic Bailey's sign. Pancreas only partially visualized due to overlying bowel gas but is otherwise unremarkable. Right kidney measures 10.0 cm with normal contours, echotexture and cortical thickness. No evidence of hydronephrosis, calculi, cystic or solid renal lesions. Partially visualized inferior vena cava unremarkable. Impression: 1. No evidence of acute right upper quadrant abnormalities. 2. Coarsened hepatic echotexture, nonspecific. 3. Borderline gallbladder wall thickening with cholelithiasis and negative sonographic bailey's sign. If there is clinical concern for acute cholecystitis, recommend a nuclear medicine hepatobiliary scan. ATED BY: CHANA GIL DO DICTATED DATE/TIME: 05/08/252138 SIGNED BY: CHANA GIL DO SIGNED DATE/TIME: 05/08/252138 CC: Condition at Discharge: Stable Final Diagnosis/Problems List Sepsis secondary to Probable acute cholecystitis status post laparoscopic cholecystectomy 05/11 Liver lesions status post laparoscopic liver biopsy Acute abdominal pain Symptomatic Cholelithiasis Transaminitis with cholestatic pattern Rule out choledocholithiasis Possible early acute cholangitis ? 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 CKD stage 3 Hypothyroidism Hypertension Discharge Disposition: Home Discharge Instruct/Medications Diet: Cardiac 2g Na,low cholest Diet comment: Soft diet, advanced as tolerated Activity: Light activity Follow Up/Referral: Follow up with surgeon as outpatient within 7 days Follow up with primary care physician within 7 days Follow up with the discharge clinic appointment within 7 days Medications: Ciprofloxacin 500 mg twice daily for 5 days Tablet metronidazole 500 mg thrice daily for 5 days Discharge Statement: "Patient was advised to return to the ER or call 911 if any headaches, dizziness, shortness of breath, chest pain, abdominal pain, bleeding, fevers, or worsening of medical condition. Patient was counseled about treatment plan, medications, possible side effects, patientverbalized understanding. All questions were answered to the best of my ability. This discharge took greater then 30 minutes in planning, reviewing documentation, counseling the patient, and discussing with other team members." ASSESSMENT ASSESSMENT Assessment Sepsis secondary to Probable acute cholecystitis status post laparoscopic cholecystectomy 05/11 Liver lesions status post laparoscopic liver biopsy GABINO LATIF RESIDENT May 13, 2025 16:45
[2025-05-13 17:00] VITALS: BP 145/75; PULSE 65; RESP 16; TEMP 98.1; O2SAT 96
[2025-05-13 17:06] VITALS: BP 104/62; PULSE 60; RESP 15; TEMP 97.8; O2SAT 94
--- NOTE | 2025-05-13 21:09 | DVHPN2 ---
Progress Note - Dictate Date Seen: May 13, 2025 (Late entryPt seen at 4 pm) Medical Necessity Reason Pt with a Central, PICC or Fol: No Subjective No new complaints ;tolerating diet Liver enzymes were trending down Patient is Post Op # 2 S/P laparoscopic cholecystectomy and biopsy of liver lesions vital signs Vital Sign Date Time Temp Pulse Resp B/P (MAP) Pulse Ox O2 Delivery O2 Flow Rate FiO2 05/13/25 17:06 97.8 60 15 94 05/13/25 17:00 145/75 (98) 05/13/25 08:10 Room Air* 0 21 Total Intake and Output 05/12/25 05/12/25 05/13/25 15:00 23:00 07:00 Intake Total 300 ml 600 ml 100 ml Balance 300 ml 600 ml 100 ml objective General: Well-built, afebrile, mucosae are moist Cardiovascular: Regular S1 and S2. No murmurs, gallops or rubs. No JVD elevation. No pedal edema Respiratory: Normal B/L air entry on room air. Clear lung sounds on auscultation Abdomen: Soft, post op dressing normoactive bowel sounds, no rebound tenderness, no organomegaly, no masses MSK/skin: Mobilizes 4 limbs. Skin is dry and warm Neurological: No motor, no sensitive deficits, normal speech. Pupils are isocoric and reactive. Psych/Mental Status: A/Ox3 laboratory and microbiology Laboratory Tests 05/13/25 14:11 05/13/25 06:50 Test 05/13/25 06:50 Range/Units Serum Glucose 90 74-106 mg/dL Problems(with codes): (1) Duodenal diverticulum (2) Gram negative sepsis (3) Urinary tract infection (4) Cholelithiasis with acute cholecystitis (5) Acute cholecystitis Prognosis Plan Discharge planning is in progress Patient was given my contact information to arrange outpatient follow up in two weeks to review her pathology results Advance diet as tolerated, supportive care Dietary Evaluation Review Comments: 1) Encourage optimal PO intake 2) Advance to cardiac diet when medically feasible, pending ST approval 3) Collect HbA1C 4) Follow-up with gastroenterology, surgery, and nephrology 5) Continue to monitor I&O, labs, and skin integrity Expected Outcomes/Goals: 1) appetite and labs to improve 2) diet to advance 3) f/u in 3-5 days Plan discussed with: Patient RIMA BIRD MD May 13, 2025 21:09
[2025-05-14] MEDS ORDERED: LEVOTHYROXINE SODIUM 88 MCG TAB PO SCH (06:00)
[2025-05-14] MEDS ORDERED: cefTRIAXone 1GM/50ML D5W 50 ML IV SCH (09:00)
== END 2025-05-13 17:51 | disposition home or self-care (01) | DRG 853 ==
LOC: ER 13:04 → OVERFLOW 21:23 → CENTRAL 21:31
PROVIDERS: ADMIT Student in an Organized Health Care Education/Training Program; ATTEND Internal Medicine
PROC: 0FB04ZX Excision of Liver, Percutaneous Endoscopic Approach, Diagnostic (ICD-10-PCS; 2025-05-11)
PROC: 0FT44ZZ Resection of Gallbladder, Percutaneous Endoscopic Approach (ICD-10-PCS; principal; 2025-05-11 09:54)
DX: A41.50 Gram-negative sepsis, unspecified (principal); N17.0 Acute kidney failure with tubular necrosis; K80.00 Calculus of gallbladder with acute cholecystitis without obstruction; K83.09 Other cholangitis; N30.00 Acute cystitis without hematuria; E03.9 Hypothyroidism, unspecified; K57.10 Diverticulosis of small intestine without perforation or abscess without bleeding; K82.8 Other specified diseases of gallbladder; N18.30 Chronic kidney disease, stage 3 unspecified; E80.6 Other disorders of bilirubin metabolism; K76.9 Liver disease, unspecified; I12.9 Hypertensive chronic kidney disease with stage 1 through stage 4 chronic kidney disease, or unspecified chronic kidney disease; E78.5 Hyperlipidemia, unspecified; Z90.710 Acquired absence of both cervix and uterus; Z86.73 Personal history of transient ischemic attack (TIA), and cerebral infarction without residual deficits; Z90.49 Acquired absence of other specified parts of digestive tract; Z88.8 Allergy status to other drugs, medicaments and biological substances
CPT/HCPCS: 36415; 71045; 74176; 74181; 76705; 80053; 80074; 81001; 82248; 82306; 82607; 82962; 83690; 83735; 84443; 85025; 85610; 85730; 86850; 86900; 86901; 87040; 87077; 87086; 87186; 93005; 96374; 96375; 97163; G0378; J0131; J0330; J1100; J2405; J2470; J2543; J2704; J3490

== ENCOUNTER 2025-06-12 06:10 | Outpatient (CLI) | payer BC ==
[~2025-06-12 06:10] MED LIST changes: +ATOR10TA52 PO; -CEPH-510 PO; +CIPR500T4 PO; +FAMO-12 PO; +GABA-339 PO; +LEVO-177 PO; +METH-928 PO; +METR-344 PO; +NIFE1TAB31 PO; +OXYB5TAB14 PO; +VALS1TAB57 PO
[2025-06-12 06:58] LABS: Urine Protein, UAD Negative (Negative); Urine WBC Clumps PRESENT /hpf (None Seen)
== END 2025-06-12 17:00 | disposition home or self-care (01) ==
LOC: LAB 06:10
PROVIDERS: ATTEND Internal Medicine
DX: N39.0 Urinary tract infection, site not specified (principal)
CPT/HCPCS: 81001; 87086

== ENCOUNTER → 2025-08-29 | Outpatient (CLI) | payer BC ==
[2025-08-29 12:59] LABS: Alanine Aminotransferase 25 U/L (7-40); Albumin 4.7 g/dL (3.2-4.8); Alkaline Phosphatase 76 U/L (46-116); Anion Gap 10 (5-15); BUN/Creatinine Ratio 14.2 (10.0-20.0); Bilirubin, Total 0.7 mg/dL (0.2-1.0); Blood Urea Nitrogen 15 mg/dL (9-23); Calcium 10.3 mg/dL (8.7-10.4); Carbon Dioxide 25 mmol/L (20-31); Cholesterol 142 mg/dL (< 200); Glucose 91 mg/dL (74-106); HDL Cholesterol 44 mg/dL (40-59); Potassium 4.6 mmol/L (3.5-5.1); Sodium 143 mmol/L (136-145); Total Protein 7.5 g/dL (5.7-8.2); Triglycerides 102 mg/dL (< 150)
[2025-08-29 13:01] LABS: Chloride 108 mmol/L (98-107)
== END | disposition home or self-care (01) ==
LOC: LAB 11:58
PROVIDERS: ATTEND Internal Medicine
DX: E78.5 Hyperlipidemia, unspecified (principal); N39.0 Urinary tract infection, site not specified
CPT/HCPCS: 36415; 80053; 80061

== ENCOUNTER 2025-09-16 09:10 | Outpatient (CLI) | payer BC ==
[2025-09-16 10:19] LABS: Calcium 9.2 mg/dL (8.7-10.4); Chloride 103 mmol/L (98-107); Potassium 4.9 mmol/L (3.5-5.1); Sodium 136 mmol/L (136-145)
[2025-09-16 10:20] LABS: Anion Gap 9 (5-15); Carbon Dioxide 24 mmol/L (20-31)
[2025-09-16 10:26] LABS: BUN/Creatinine Ratio 16.7 (10.0-20.0); Blood Urea Nitrogen 14 mg/dL (9-23)
[2025-09-16 10:32] LABS: Glucose 124 mg/dL (74-106)
== END 2025-09-16 17:00 | disposition home or self-care (01) ==
LOC: LAB 09:10
PROVIDERS: ATTEND Internal Medicine
DX: I10 Essential (primary) hypertension (principal)
CPT/HCPCS: 36415; 80048